=== PATIENT | male | born 1955 | race Caucasian/White ===

== ENCOUNTER 2024-03-05 18:20 | Inpatient (IN) | payer OTHER, SELFPAY ==
[2024-03-05] VITALS (8 sets, daily range): BP systolic 97–169; BP diastolic 55–94; BMI 28.8; BMI 28.7
--- NOTE | 2024-03-05 11:51 | ED.GENMED ---
History of Present Illness
General
Chief Complaint: Male Genito-Urinary Symptoms
Time Seen by Provider: 03/05/24 11:09
Travel History
Have you had any contact with someone who has COVID-19?: No
Do you have any symptoms of coronavirus? Fever > 100 degrees, chills, cough, shortness of breath, sore throat, loss of taste or smell, muscle aches, or headache?: No
History of Present Illness
History of Present Illness:
68-year-old male presents to the emergency department for evaluation of intermittent hematuria coupled with generalized weakness and nausea. Patient notes that he is paralyzed from the waist down due to a prior spinal cord injury approximately 40
years ago, typically was using condom catheters however recently has developed edema of the penis and scrotum and the condom catheters are no longer adhering well. Over the past month he has had an indwelling Li catheter, this was most recently
changed 2 to 3 days ago. He states due to cloudy urine 1 week ago he was seen in urgent care and started on a antibiotic for presumed UTI, took nearly the full course of cefuroxime over the course of 5 days. He was also treated with doxycycline 1
month prior but he is uncertain why. He was following with wound care at [facility] this morning for a chronic wound to the left inguinal region and was advised to seek emergency medicine evaluation although the wound appears clean on my
evaluation. Denies any objective fevers but does have frequent shaking chills
Past History
Past History
ED Past Medical History: None
ED Past Surgical History: Orthopedic
Social History
Tobacco: Non-smoker
Alcohol: None
Drug: None
Review of Systems
Review of Systems
Allergies reviewed?: Yes
All Other Systems: ROS reviewed and negative except as documented in HPI and ROS
Phy Exam
Physical Exam
Physical Exam:
GEN: Well appearing, NAD, WDWN
HEENT: Oral mucosa moist, no scleral icterus
Cardiac: Regular rate
Lung: No respiratory distress, no tachypnea
MSK: No gross deformity or injuries
Skin: Good color, no pallor or jaundice, no rashes. 4 cm x 3 cm full-thickness wound to the left inguinal region, no associated erythema or purulent discharge. There is mild edema of the scrotum bilaterally with no induration, no perineal
induration
Neuro: AO x3
Psych: Calm, cooperative
Course
Orders/Labs/Results
Orders:
Orders
03/05/24 13:22
C-Reactive Protein Urgent
Comment: ADD ON
Complete Blood Count/With Diff Urgent
Comprehensive Metabolic Panel Urgent
Erythrocyte Sed Rate Urgent
Comment: ADD ON
Lactic Acid Q4H
Comment: CANCEL 2nd LACTIC ACID IF 1st LACTIC ACID IS LESS THAN 2
Blood Culture Q30M
AKILA Source: Blood/Venous
Specimen Description:
03/05/24 13:52
Urinalysis Reflex To Culture Urgent
Date Specimen was Collected: 03/05/24
Time Specimen was Collected: 11:58
Urine Microscopic Reflex Cult Urgent
Urine Culture Urgent
AKILA Source: U
Specimen Description:
Date Specimen was Collected: 03/05/24
Time Specimen was Collected: 11:58
03/05/24 14:36
0.9% Sodium Chloride 1000 ml [Nss] 1,000 ml IV BOLUS
Ondansetron Injectable [Zofran] 4 mg IV NOW STA
03/05/24 Dinner
Regular
At Your Request: Full Participation
03/05/24 15:13
CT Pelvis With Iv Contrast Urgent
Comment:
Reason For Exam: chronic pelvic wound, recurrent UTI, poss abscess
CefTRIAXone [Rocephin] 1,000 mg IV NOW STA
03/05/24 15:28
Add On- LAB Urgent
Tests Added?: CRP, ESR
03/05/24 17:51
Admit/Transfer Patient As Directed
Co-Sign Provider:
Level of Care: Inpatient admission
Assign to:: Medical/Surgical
Physician / Group: gelacio
Diagnosis: catheter associated uti
Reason for Hospitalization: catheter associated uti
Expected length of stay greater than two midnights?: Yes
ELOS- Estimated Length of Stay in days: 2
I certify the patient meets the requirements for IP care: Yes
Code Status As Directed
Resuscitation Status: Full Code
03/05/24 17:56
Li Catheter [Catheter- Indwelling] As Directed
Reason for insertion: Chronic Li on Admit
03/05/24 19:37
Acetaminophen [Tylenol] 1,000 mg PO DAILYPRN PRN
03/05/24 19:37
UROLOGY CONSULT Routine
Consulting Provider: Ricki Beard
Was physician already notified: Yes
WOUND/OSTOMY CONSULT Routine
Reason for Consult: sacral, inguinal wounds
VTE Contraindication Routine
VTE Mechanical Device Contraindication: Medical Contraindication
Pharmocologic Contraindication: Medical Contraindication
Activity As Directed
Activity Level: As Tolerated
Vital Signs As Directed
Frequency: Per unit guidelines
DX Deep Vein Thrombosis Video Routine
03/05/24 20:00
Heparin 5,000 units SC Q12
Multivitamin [Theragran] 1 tablet PO BID
03/05/24 20:35
Blood Culture Q30M
AKILA Source: Blood/Venous
Specimen Description:
03/05/24 22:00
Ascorbic Acid [Vitamin C] 500 mg PO HS
Atorvastatin [Lipitor] 40 mg PO HS
03/06/24 05:00
Complete Blood Count/With Diff IN AM
Comprehensive Metabolic Panel IN AM
03/06/24 16:00
CefTRIAXone [Rocephin] 1,000 mg IV Q24H
Abnormal Lab Results
03/05/24 03/05/24
13:22 13:52
RBC 4.59 L 10^6/uL
(4.70-6.10)
Hgb 12.5 L g/dL
(13.0-18.0)
Hct 36.5 L %
(39.0-52.0)
MCV 79.5 L fL
(80.0-94.0)
Absolute Neuts (auto) 8.8 H 10^3/uL
(1.4-6.5)
Absolute Lymphs (auto) 0.4 L 10^3/uL
(1.2-3.4)
Neutrophils % 92.3 H %
(42.2-75.2)
Lymphocytes % 4.6 L %
(20.5-51.1)
ESR 56 H mm/hour
(0-20)
Creatinine 0.4 L mg/dL
(0.7-1.3)
C-Reactive Protein 134.30 H mg/L
(0.0-10.00)
Albumin 3.0 L g/dl
(3.5-5.0)
Ur Occult Blood Reflex 4+ A
(Negative)
Leukocyte Esterase Rfl 2+ A
(Negative)
Urine RBC 3-6 A /HPF
(0-2)
Urine WBC (Reflex) >100 A /HPF
(0-5)
Urine Bacteria (Reflex) Many A
(Negative)
03/05/24 13:22
03/05/24 13:22
Vital Signs
Initial and Last Documented VS:
Initial Vital Signs
Temp Pulse Resp BP Pulse Ox
98.7 F 85 18 169/81 99
03/05/24 10:37 03/05/24 10:37 03/05/24 10:37 03/05/24 10:37 03/05/24 10:37
Last Documented Vital Signs
Temp Pulse Resp BP Pulse Ox
98.3 F 76 16 102/48 96
03/07/24 07:00 03/07/24 07:00 03/07/24 07:00 03/07/24 07:00 03/07/24 07:00
MDM/Problems Addressed
MDM/Problems Addressed:
Patient has evidence for persistent catheter associated UTI despite use of appropriate antibiotics. Given his shaking chills and large leukocytes on urinalysis would consider this a true UTI as opposed to colonization and thus we will treat with
broad-spectrum IV antibiotics. Patient will have imaging of the pelvis to evaluate for a pelvic abscess or potentially pelvic bone osteomyelitis in the setting of this chronic wound, this could certainly seeded recurrent UTIs. care signed out to
Raul Sylvester PA-c Pending imaging, will be admitted thereafter
*Critical Care Note
Total Time (30-74mins, 75-104mins- exclusive of procedures): Not Applicable
ED Attending Note
-
Portions of this chart may have been created with voice recognition software.� Occasional wrong word or��sound alike� substitutions may have occurred due to the inherent limitations of voice recognition software.
Discharge Plan
Departure
Patient Disposition: Admit
Date of Disposition: 03/05/24
Time of Disposition: 15:28
Admit to: Med/Surg
Presentation/result/management discussed w/ accepting MD/DO: Hospitalist
Discharge Problem:
Catheter-associated urinary tract infection, Open wound of groin
Interventions
Interventions:
*Risk Screen - Suicide Last Done: 03/05/24 21:25
*General Assessment Last Done: 03/05/24 10:37
*Neglect/Abuse Screening Last Done: 03/05/24 10:37
ED- Fall Risk Assessment Last Done: 03/05/24 18:30
*ED COVID-19 Vaccine History Last Done: 03/05/24 21:25
*Nursing Disposition Last Done: 03/05/24 18:30
ED-Male Genitourinary Assessment Last Done: 03/05/24 11:59
ED-Skin Assessment Last Done: 03/05/24 20:41
Discharge Date and Time
Discharge Date/Time: 03/05/24 18:30
[2024-03-05 13:32] LABS: % Basophils 0.3 % (0-2); % Eosinophils 0.1 % (0-6); % Immature Granulocytes 0.4 % (0-0.5); % Lymphocytes 4.6 % (20.5-51.1); % Monocytes 2.3 % (1.7-9.3); % Neutrophils 92.3 % (42.2-75.2); Absolute Lymphocytes 0.4 10^3/uL (1.2-3.4); Absolute Monocytes 0.2 10^3/uL (0.1-0.6); Absolute Neutrophils 8.8 10^3/uL (1.4-6.5); Hematocrit 36.5 % (39.0-52.0); Hemoglobin 12.5 g/dL (13.0-18.0); Mean Corp Hgb Conc. 34.2 g/dL (33.0-37.0); Mean Corpuscular Hgb 27.2 pg (27.0-31.0); Mean Corpuscular Volume 79.5 fL (80.0-94.0); Mean Platelet Volume 8.3 fL (7.4-10.4); Nucleated Red Blood Cells % 0 % (-); Platelet Count 312 10^3/uL (130-400); Red Blood Cell Count 4.59 10^6/uL (4.70-6.10); Red Cell Dist. Width 14.5 % (11.5-14.5); White Blood Cell Count 9.6 10^3/uL (4.8-10.8)
[2024-03-05 13:45] LABS: Lactic Acid 1.5 mmol/L (0.7-2.0)
[2024-03-05 13:46] LABS: ALT (SGPT) 49 U/L (0-50); AST (SGOT) 35 U/L (17-59); Alkaline Phosphatase 71 U/L (38-126); Blood Urea Nitrogen 15 mg/dl (9-20); Calcium 8.9 mg/dl (8.4-10.2); Carbon Dioxide 25 mmol/L (22-30); Chloride 102 mmol/L (98-107); Estimated Creatinine Clearance > 125 ml/min; Glucose 94 mg/dl (70-99); Sodium 135 mmol/L (135-145); Total Bilirubin 0.8 mg/dl (0.2-1.3); Total Protein 6.8 g/dl (6.3-8.2); eGFR > 60.00
[2024-03-05 14:11] LABS: Urine Albumin Trace (Neg - Trace); Urine Bilirubin Negative (Negative); Urine Character Very Cloudy (Clear); Urine Color Yellow; Urine Glucose Negative (Negative); Urine Ketone Negative (Negative); Urine Leukocyte 2+ (Negative); Urine Nitrite Negative (Negative); Urine Occult Blood 4+ (Negative); Urine Urobilinogen Negative (Neg - 1+)
[2024-03-05] MEDS: NSS 1000 IV (14:50)
[2024-03-05] MEDS: ZOFRAN 4 MG IV (14:51)
[2024-03-05 15:01] LABS: Urine Bacteria Many (Negative); Urine White Cell >100 /HPF (0-5)
[2024-03-05] MEDS: ROCEPHIN 1000 MG IV (15:56)
[2024-03-05 16:55] LABS: Erythrocyte Sed Rate 56 mm/hour (0-20)
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
--- NOTE | 2024-03-05 21:00 | PTCARENOTE ---
Patient admitted from ED. Patient AAO x3, on RA, in no acute distress. Chronic thompson catheter in place - will exchange. Patient has pressure injuries noted to sacrum and left groin present on admission. Foam dressings and ABD dressing applied. Wound
care is consulted. Patient is oriented to room and call mendoza is within reach.
[2024-03-05] MEDS: VITAMIN C 500 MG PO (21:39)
[2024-03-05] MEDS: HEPARIN 5000 UNITS SC (21:39)
[2024-03-05] MEDS: LIPITOR 40 MG PO (21:39)
[2024-03-05] MEDS: THERAGRAN 1 TABLET PO (21:39)
[2024-03-05] MEDS: TYLENOL 1000 MG PO (22:39)
[2024-03-06 05:36] LABS: % Basophils 0.5 % (0-2); % Eosinophils 0.9 % (0-6); % Immature Granulocytes 0.5 % (0-0.5); % Lymphocytes 18.8 % (20.5-51.1); % Monocytes 8.9 % (1.7-9.3); % Neutrophils 70.4 % (42.2-75.2); Absolute Eosinophils 0.1 10^3/uL (0-0.7); Absolute Lymphocytes 1.3 10^3/uL (1.2-3.4); Absolute Monocytes 0.6 10^3/uL (0.1-0.6); Absolute Neutrophils 4.7 10^3/uL (1.4-6.5); Hematocrit 35.6 % (39.0-52.0); Hemoglobin 11.8 g/dL (13.0-18.0); Mean Corp Hgb Conc. 33.1 g/dL (33.0-37.0); Mean Corpuscular Hgb 26.9 pg (27.0-31.0); Mean Corpuscular Volume 81.3 fL (80.0-94.0); Mean Platelet Volume 8.7 fL (7.4-10.4); Nucleated Red Blood Cells % 0 % (-); Platelet Count 331 10^3/uL (130-400); Red Blood Cell Count 4.38 10^6/uL (4.70-6.10); Red Cell Dist. Width 14.6 % (11.5-14.5); White Blood Cell Count 6.6 10^3/uL (4.8-10.8)
[2024-03-06 06:03] LABS: ALT (SGPT) 48 U/L (0-50); AST (SGOT) 37 U/L (17-59); Albumin 2.6 g/dl (3.5-5.0); Alkaline Phosphatase 64 U/L (38-126); Blood Urea Nitrogen 14 mg/dl (9-20); Calcium 8.6 mg/dl (8.4-10.2); Carbon Dioxide 28 mmol/L (22-30); Chloride 105 mmol/L (98-107); Estimated Creatinine Clearance > 125 ml/min; Glucose 94 mg/dl (70-99); Potassium 3.7 mmol/L (3.5-5.1); Sodium 137 mmol/L (135-145); Total Bilirubin 0.6 mg/dl (0.2-1.3); eGFR > 60.00
[2024-03-06 07:40] VITALS: BP 100/54
[2024-03-06] MEDS: THERAGRAN 1 TABLET PO ×2 (08:07→21:59)
[2024-03-06] MEDS: HEPARIN 5000 UNITS SC ×2 (08:07→21:59)
--- NOTE | 2024-03-06 09:43 | WOUNDNOTE ---
SACRUM AND L UPPER BUTTOCKS
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
--- NOTE | 2024-03-06 13:58 | W.PN.UPDATE ---
Update Note
Progress Note Update
Given catheter exchange (previous malpositioned catheter placed by pt) <24 hrs, advise restarting Eliquis tomorrow (03/07/24).
D/w Dr. Jarquin.
[2024-03-06] MEDS: STERILE WATER FOR INJECTION 10 ML IV (15:25)
[2024-03-06] MEDS: ROCEPHIN 1000 MG IV (15:25)
[2024-03-06 15:36] VITALS: BP 111/56
--- NOTE | 2024-03-06 15:51 | CM ---
Met with patient at bedside; initial assessment and case management consult completed
Family Physician verified: Yanick Monotya D.O., [address], [facility] [address]; phone: [phone]
Pharmacy verified: [facility]
Lives alone in a [place] w/basement; no steps to enter; no ramp; chair glide on basement stairs; bath has tub w/shower; uses a bath bench to get in/out of tub
Ex- and son available to assist when needed; ex- assists with wound care. Both are moving and he will will need assistance with wound care when they move. [facility] [place]
Rehab utilization: Acute inpatient rehab in the past; last one was in 2021
No SNF or Home Health services utilized
PLOF: Spinal cord injury T12 1979. Reports he is independent with ADLs; for mobility; retired
Chronic Urinary catheter in place; at home he uses a condom urinary catheter; reports he has inguinal wounds
Transportation: family will provide transport home
Plan: discharge to home with home health services from [facility]; referral submitted to liaison via tiger text
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
--- NOTE | 2024-03-06 16:32 | VNURNOTE ---
[facility] referral completed in [facility] after review of chart, unable to reach patient by cell phone or room phone.
[2024-03-06] MEDS: LIPITOR 40 MG PO (21:59)
[2024-03-06] MEDS: VITAMIN C 500 MG PO (21:59)
[2024-03-06 23:00] VITALS: BP 155/95
[2024-03-07 07:00] VITALS: BP 102/48
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
[2024-03-07] MEDS: HEPARIN 5000 UNITS SC (08:14)
[2024-03-07] MEDS: THERAGRAN 1 TABLET PO ×2 (08:14→20:22)
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
--- NOTE | 2024-03-07 11:41 | W.PN.ID1 ---
Date of Service
Date of Service: March 07, 2024
Today's Communication
- continue ceftriaxone pending ID/sensi
Assessment / Plan
Complicated UTI
Malpositioned thompson catheter - replaced this admission
Paraplegia
Wounds without evidence of infection
- urine culture 100 K GNR
- blood cultures 1 of 2 with GNR
- no need to repeat blood cultures for GNR bacteremia
- continue ceftriaxone pending ID/sensi
- follow for ID/sensi of the isolate
Chief Complaint
-: UTI
Subjective / Review of Systems
no further fevers
bp stable
no labs today
1 of 2 blood cultures GNR
no cva tenderness
clear urine
Vital Signs / Physical Exam
Vital Signs
Vital Signs
Temp Pulse Resp BP Pulse Ox
98.3 F 76 16 102/48 96
03/07/24 07:00 03/07/24 07:00 03/07/24 07:00 03/07/24 07:00 03/07/24 07:00
Physical Exam
Constitutional: No Acute Distress
Cardiovascular: Regular Rate and S1/S2; Negative Murmur or Rub
Pulmonary: Clear and Symmetric; Negative Wheezes or Rales
Gastrointestinal: Soft, Non Tender, Non Distended and Normal Bowel Sounds
Genito-Urinary: Clear Urine; Negative Suprapubic Tenderness or CVA Tenderness
Skin: Warm and Dry; Negative Rash or Jaundice
Objective Data
Lab Data
Lab Results
03/06/24 05:00
03/06/24 05:00
ESR 56 mm/hour (0-20) H 03/05/24 13:22
Estimated Creat Clear > 125 ml/min 03/06/24 05:00
Lactic Acid 1.5 mmol/L (0.7-2.0) 03/05/24 13:22
Total Bilirubin 0.6 mg/dl (0.2-1.3) 03/06/24 05:00
AST 37 U/L (17-59) 03/06/24 05:00
ALT 48 U/L (0-50) 03/06/24 05:00
Alkaline Phosphatase 64 U/L (38-126) 03/06/24 05:00
C-Reactive Protein 134.30 mg/L (0.0-10.00) H 03/05/24 13:22
Most recent labs reviewed.
Micro Results:
03/05/24 13:52 Urine Culture - Preliminary
Urine Gram negative bacilli
03/05/24 22:05 MRSA Screen - Final
Nose No Methicillin Resistant Staphylococcus aureus isolated.
03/05/24 20:35 Blood Culture - Preliminary
Blood/Venous No Growth in 24 hours- Final report to follow
03/05/24 13:22 Blood Culture - Preliminary
Blood/Venous Positive culture in progress
Gram Stain - Preliminary
[2024-03-07] MEDS: ELIQUIS 5 MG PO ×2 (12:11→20:22)
[2024-03-07 15:00] VITALS: BP 105/59
[2024-03-07] MEDS: STERILE WATER FOR INJECTION 10 ML IV (17:16)
[2024-03-07] MEDS: ROCEPHIN 1000 MG IV (17:16)
[2024-03-07] MEDS: VITAMIN C 500 MG PO (20:22)
[2024-03-07] MEDS: LIPITOR 40 MG PO (20:22)
[2024-03-07 23:00] VITALS: BP 108/59
[2024-03-08 07:14] VITALS: BP 92/40
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
--- NOTE | 2024-03-08 08:33 | W.PN.UPDATE ---
Update Note
Progress Note Update
Called by microl[facility] for resistant morganella
patient with bactrim allergy limited antibiotic choices
start ertapenem 1 gm IV q24 hr, to complete 2 weeks of rx with concern for prostatitis - through 03/21
midline
stable for dc from ID perspective when antibiotic arranged
follow up with Dr Beard - urology
[2024-03-08] MEDS: THERAGRAN 1 TABLET PO ×2 (08:58→19:56)
[2024-03-08] MEDS: ELIQUIS 5 MG PO ×2 (08:58→19:56)
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
[2024-03-08] MEDS: INVANZ 60 MG IV (09:47)
[2024-03-08 10:08] LABS: Hematocrit 38.5 % (39.0-52.0); Hemoglobin 13.2 g/dL (13.0-18.0); Mean Corp Hgb Conc. 34.3 g/dL (33.0-37.0); Mean Corpuscular Hgb 26.7 pg (27.0-31.0); Mean Corpuscular Volume 77.9 fL (80.0-94.0); Mean Platelet Volume 8.3 fL (7.4-10.4); Platelet Count 366 10^3/uL (130-400); Red Blood Cell Count 4.94 10^6/uL (4.70-6.10); Red Cell Dist. Width 14.4 % (11.5-14.5); White Blood Cell Count 6.2 10^3/uL (4.8-10.8)
--- NOTE | 2024-03-08 14:28 | W.PN.ID1 ---
Date of Service
Date of Service: March 08, 2024
Today's Communication
- ertapenem
- midline
- at patient request may consider bactrim challenge tomorrow, will re-review with him in the AM
Assessment / Plan
Complicated UTI
Malpositioned thompson catheter - replaced this admission
Paraplegia
Wounds without evidence of infection
- urine culture 100 K Morganella, blood cultures Morganella
- without leukocytosis, cr stable
- ertapenem
- midline
- at patient request may consider bactrim challenge tomorrow, will re-review with him in the AM
Chief Complaint
-: UTI
Subjective / Review of Systems
afebrile
bp stable
reports bactrim issue was minimal scratchy throat- he questions if allergy is real without my prompting
without leukocyotsis
cr stable
midline in place
Vital Signs / Physical Exam
Vital Signs
Vital Signs
Temp Pulse Resp BP Pulse Ox
98.8 F 67 16 92/40 98
03/08/24 07:14 03/08/24 07:14 03/08/24 07:14 03/08/24 07:14 03/08/24 07:14
Physical Exam
Constitutional: No Acute Distress
Cardiovascular: Regular Rate and S1/S2; Negative Murmur or Rub
Pulmonary: Clear and Symmetric; Negative Wheezes or Rales
Gastrointestinal: Soft, Non Tender, Non Distended and Normal Bowel Sounds
Skin: Warm and Dry; Negative Rash or Jaundice
Lines: Other (midline)
Objective Data
Lab Data
Lab Results
03/08/24 09:55
03/06/24 05:00
ESR 56 mm/hour (0-20) H 03/05/24 13:22
Estimated Creat Clear > 125 ml/min 03/06/24 05:00
Lactic Acid 1.5 mmol/L (0.7-2.0) 03/05/24 13:22
Total Bilirubin 0.6 mg/dl (0.2-1.3) 03/06/24 05:00
AST 37 U/L (17-59) 03/06/24 05:00
ALT 48 U/L (0-50) 03/06/24 05:00
Alkaline Phosphatase 64 U/L (38-126) 03/06/24 05:00
C-Reactive Protein 134.30 mg/L (0.0-10.00) H 03/05/24 13:22
Most recent labs reviewed.
Micro Results:
03/07/24 13:08 Blood Culture - Preliminary
Blood/Venous No Growth in 24 hours- Final report to follow
03/07/24 11:52 Blood Culture - Preliminary
Blood/Venous No Growth in 24 hours- Final report to follow
03/05/24 13:22 Blood Culture - Preliminary
Blood/Venous Morganella morganii
Gram Stain - Preliminary
03/05/24 13:52 Urine Culture - Final
Urine Morganella morganii
03/05/24 20:35 Blood Culture - Preliminary
Blood/Venous No Growth in 48 hours- Final report to follow
03/05/24 22:05 MRSA Screen - Final
Nose No Methicillin Resistant Staphylococcus aureus isolated.
[2024-03-08 14:53] VITALS: BMI 28.7
[2024-03-08 15:00] VITALS: BP 93/46
[2024-03-08] MEDS: LIPITOR 40 MG PO (21:52)
[2024-03-08] MEDS: VITAMIN C 500 MG PO (21:52)
[2024-03-08 23:00] VITALS: BP 118/58
[2024-03-09 05:52] LABS: Hematocrit 39.6 % (39.0-52.0); Hemoglobin 12.8 g/dL (13.0-18.0); Mean Corp Hgb Conc. 32.3 g/dL (33.0-37.0); Mean Corpuscular Hgb 26.3 pg (27.0-31.0); Mean Corpuscular Volume 81.5 fL (80.0-94.0); Mean Platelet Volume 8.7 fL (7.4-10.4); Platelet Count 439 10^3/uL (130-400); Red Blood Cell Count 4.86 10^6/uL (4.70-6.10); Red Cell Dist. Width 14.4 % (11.5-14.5); White Blood Cell Count 8.8 10^3/uL (4.8-10.8)
[2024-03-09 06:17] LABS: Blood Urea Nitrogen 16 mg/dl (9-20); Calcium 9.3 mg/dl (8.4-10.2); Carbon Dioxide 27 mmol/L (22-30); Chloride 104 mmol/L (98-107); Estimated Creatinine Clearance > 125 ml/min; Glucose 96 mg/dl (70-99); Potassium 4.5 mmol/L (3.5-5.1); Sodium 138 mmol/L (135-145); eGFR > 60.00
[2024-03-09 07:00] VITALS: BP 131/70
[2024-03-09] MEDS: ELIQUIS 5 MG PO ×2 (09:28→22:01)
[2024-03-09] MEDS: THERAGRAN 1 TABLET PO ×2 (09:28→22:01)
[2024-03-09] MEDS: INVANZ 60 MG IV (09:30)
--- NOTE | 2024-03-09 11:14 | WOUNDNOTE ---
SACRUM AND L HIP/ UPPER BUTTOCKS
--- NOTE | 2024-03-09 11:16 | WOUNDNOTE ---
R HIP HEALED PI
--- NOTE | 2024-03-09 11:18 | WOUNDNOTE ---
WON RN NOTE: Followed up today regarding wounds, patient able to turn self with minimal assist. On [facility] Air bed, patient confirms he turns self to sides and is conscious of not putting HOB too high to prevent pressure on Sacrum. Wounds look
lamp cleaner compared to last seen, dressings changed using silver alginate and silicone foam. Applied skin prep then Calazime to L scrotal partial thickness ulcer, no change since last seen. Heels remain with protective foams to protect. Teaching done
with patient regarding wound care, states he can do L groin himself but has someone that can help him change sacral and buttock wounds daily. Asking information regarding the wound center at our hospital, patient wishes to change wound centers. Will
update discharge instructions with information for wound center and patient will make an apt. upon discharge. Nurse Will aware of above.
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
--- NOTE | 2024-03-09 12:46 | W.PN.UPDATE ---
Update Note
Progress Note Update
Li catheter draining well - no hematuria.
As d/w patient, will change catheter in office in 3 weeks in lieu of CIC/condom catheter regimen.
--- NOTE | 2024-03-09 12:55 | VNURNOTE ---
Home Health Liaison met with patient at 1130 to discuss [facility] nurse/therapy, visits, schedule and homebound status. Patient is agreeable and understands that visits at home will be 2-3 x per week to assess and teach medical management and wound care.
Liaison discussed need for hospital bed if patient required air mattress and patient is reluctant.
[facility] contact information provided. Patient is aware that [facility] will contact him for start of care in 1-2 days after discharge from .
[facility] referral completed and accepted previously in [facility].
--- NOTE | 2024-03-09 13:41 | W.PN.ID1 ---
Date of Service
Date of Service: March 09, 2024
Today's Communication
- at patient request proceeding with bactrim challenge, may not need home IV antibiotics
Assessment / Plan
Complicated UTI
Malpositioned thompson catheter - replaced this admission
Paraplegia
Wounds without evidence of infection
- urine culture 100 K Morganella, blood cultures Morganella
- without leukocytosis, cr stable
- at patient request proceeding with bactrim challenge, may not need home IV antibiotics
Chief Complaint
-: UTI
Subjective / Review of Systems
afebrile
bp stable
no leukocytosis
cr stable
wants to proceed with bactrim challenge
Vital Signs / Physical Exam
Vital Signs
Vital Signs
Temp Pulse Resp BP Pulse Ox
98.6 F 80 16 131/70 98
03/09/24 07:00 03/09/24 07:00 03/09/24 07:00 03/09/24 07:00 03/09/24 08:38
Physical Exam
Constitutional: No Acute Distress
Cardiovascular: Regular Rate
Pulmonary: Symmetric and Non Labored
Gastrointestinal: Non Distended
Neurological: Awake and Alert
Objective Data
Lab Data
Lab Results
03/09/24 04:54
03/09/24 04:54
ESR 56 mm/hour (0-20) H 03/05/24 13:22
Estimated Creat Clear > 125 ml/min 03/09/24 04:54
Lactic Acid 1.5 mmol/L (0.7-2.0) 03/05/24 13:22
Total Bilirubin 0.6 mg/dl (0.2-1.3) 03/06/24 05:00
AST 37 U/L (17-59) 03/06/24 05:00
ALT 48 U/L (0-50) 03/06/24 05:00
Alkaline Phosphatase 64 U/L (38-126) 03/06/24 05:00
C-Reactive Protein 134.30 mg/L (0.0-10.00) H 03/05/24 13:22
Most recent labs reviewed.
Micro Results:
03/07/24 13:08 Blood Culture - Preliminary
Blood/Venous No Growth in 48 hours- Final report to follow
03/07/24 11:52 Blood Culture - Preliminary
Blood/Venous No Growth in 48 hours- Final report to follow
03/05/24 20:35 Blood Culture - Preliminary
Blood/Venous No Growth in 72 hours- Final report to follow
03/05/24 13:22 Blood Culture - Preliminary
Blood/Venous Morganella morganii
Gram Stain - Preliminary
03/05/24 13:52 Urine Culture - Final
Urine Morganella morganii
03/05/24 22:05 MRSA Screen - Final
Nose No Methicillin Resistant Staphylococcus aureus isolated.
Care Review
Plan reviewed with: Other Provider (Clinical pharmacy - [facility] pharmD - bactrim challenge protocal )
--- NOTE | 2024-03-09 14:44 | CM ---
Spoke with patient bedside.
Plan is home with [facility].
Ex- will be able to assist for a little while, but she is moving.
Patient may need hospital bed, VN aware.
Possible home IV anbx, patient chose [facility].
Per [facility], cost would be $60 per week until OOP deductible of $1000 met then covered at 100%. Patient updated.
Spoke with ID, starting Bactrim challenge today.
Plan: home with [facility], possible IV anbx vs oral.
[2024-03-09 15:00] VITALS: BP 105/56
[2024-03-09] MEDS: BACTRIM 16 MG PO (15:57)
[2024-03-09] MEDS: BACTRIM 400 MG/80 MG 1 TABLET PO (17:28)
[2024-03-09] MEDS: LIPITOR 40 MG PO (22:02)
[2024-03-09] MEDS: VITAMIN C 500 MG PO (22:02)
[2024-03-09 22:50] VITALS: BP 106/59
[2024-03-09] MEDS: TYLENOL 650 MG PO (22:50)
[2024-03-10 07:35] VITALS: BP 112/59
[2024-03-10] MEDS: THERAGRAN 1 TABLET PO (09:00)
[2024-03-10] MEDS: ELIQUIS 5 MG PO (09:00)
[2024-03-10] MEDS: BACTRIM 400 MG/80 MG 1 TABLET PO (09:00)
[2024-03-10] MEDS: INVANZ 60 MG IV (09:08)
--- NOTE | 2024-03-10 10:20 | PN.CDI ---
CDI
- -
CDI:
Physician Documentation Request
Admit Date: 03/05/24 18:20
Dear Doctor,
Please review the following and provide your response in the progress notes.
Clinical Indicators:
Pt admitted with CAUTI
ID progress notes 03/08 &03/09 ,' urine culture 100 K Morganella, blood cultures Morganella..'
Progress note 03/09, ' was on Rocephin, now on Invanz 1g IV daily through 03/21/24 as per ID (resistant morganella in BCx)...-DC to home on IV abx (already has midline) vs. po bactrim ?...'
Please clarify which of the following most accurately describes the status of the patient's infection:
Morganella Bacteremia
CAUTI with Morganella only , Without Systemic Illness
Other
Use of terms such as suspected, likely, concern for, or probable (associated with a specific diagnosis that is being evaluated, monitored, or treated as if it exists) are acceptable and can be coded in the inpatient setting, when documented at the
time of discharge.
Thank you,
Vane Canales RN
CDI Specialist
[place] [facility]
Please use your independent medical judgment in providing your response.
[2024-03-10 10:37] VITALS: BMI 26.5
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
--- NOTE | 2024-03-10 12:34 | W.PN.ID1 ---
Addendum entered and electronically signed by Amie Crawford MD 03/10/24 15:18:
Additionally patient had Morganella Bacteremia
Original Note:
Date of Service
Date of Service: March 10, 2024
Today's Communication
- continue bactrim for 2 week total course through 03/21
- remove midline
- allergy removed from chart
- follow up with PCP
Assessment / Plan
Complicated UTI
Malpositioned thompson catheter - replaced this admission
Paraplegia
Wounds without evidence of infection
- continue bactrim for 2 week total course through 03/21
- remove midline
- allergy removed from chart
- follow up with PCP
Chief Complaint
-: UTI
Subjective / Review of Systems
afebrile
bp stable
tolerated bactrim - allergy removed
no complaints
Vital Signs / Physical Exam
Vital Signs
Vital Signs
Temp Pulse Resp BP Pulse Ox
97.9 F 77 12 112/59 98
03/10/24 07:35 03/10/24 07:35 03/10/24 07:35 03/10/24 07:35 03/10/24 09:00
Physical Exam
Constitutional: No Acute Distress
Cardiovascular: Regular Rate
Pulmonary: Symmetric and Non Labored
Gastrointestinal: Non Distended
Skin: Warm and Dry; Negative Rash or Jaundice
Objective Data
Lab Data
Lab Results
03/09/24 04:54
03/09/24 04:54
ESR 56 mm/hour (0-20) H 03/05/24 13:22
Estimated Creat Clear > 125 ml/min 03/09/24 04:54
Lactic Acid 1.5 mmol/L (0.7-2.0) 03/05/24 13:22
Total Bilirubin 0.6 mg/dl (0.2-1.3) 03/06/24 05:00
AST 37 U/L (17-59) 03/06/24 05:00
ALT 48 U/L (0-50) 03/06/24 05:00
Alkaline Phosphatase 64 U/L (38-126) 03/06/24 05:00
C-Reactive Protein 134.30 mg/L (0.0-10.00) H 03/05/24 13:22
Most recent labs reviewed.
Micro Results:
03/07/24 11:52 Blood Culture - Preliminary
Blood/Venous No Growth in 72 hours- Final report to follow
03/05/24 20:35 Blood Culture - Preliminary
Blood/Venous No Growth in 4 days- Final report to follow
03/07/24 13:08 Blood Culture - Preliminary
Blood/Venous No Growth in 48 hours- Final report to follow
03/05/24 13:22 Blood Culture - Preliminary
Blood/Venous Morganella morganii
Gram Stain - Preliminary
03/05/24 13:52 Urine Culture - Final
Urine Morganella morganii
03/05/24 22:05 MRSA Screen - Final
Nose No Methicillin Resistant Staphylococcus aureus isolated.
Care Review
Plan reviewed with: Physician (Dr Logan song)
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
--- NOTE | 2024-03-10 13:15 | VNURNOTE ---
Home Health Liaison met with patient to again discuss and encourage air mattress and hospital bed for home.
Patient is declining at this time.
Patient stated ' I would have to reconfigure my house' and ' I want to talk to [facility] to find out what I could use'.
Liaison discussed that patient should strongly consider getting alternating pressure relief mattress or air mattress to assist in healing current wounds and for prevention of future wounds.
Patient verbalized understanding but wants to wait and does not want to place order at this time.
--- NOTE | 2024-03-10 14:20 | CM ---
Patient seen bedside.
Patient for d/c home today, friend will transport.
[facility] to follow.
Patient does not want at hospital bed at this time.
Patient does not require IV anbx.
IMM completed.
Plan: home with [facility]
[2024-03-10 14:29] VITALS: BP 121/70
== END 2024-03-10 17:21 | disposition home health service (06) | DRG 698 ==
LOC: 4 WEST ACU 18:20
PROVIDERS: Internal Medicine; Physician Assistant; ADMITTING PHYSICIAN Hospitalist; ATTENDING PHYSICIAN Hospitalist; CONSULT PHYSICIAN Student in an Organized Health Care Education/Training Program; EMERGENCY PHYSICIAN Emergency Medicine; FAMILY PHYSICIAN Student in an Organized Health Care Education/Training Program
DX: T83.518A Infection and inflammatory reaction due to other urinary catheter, initial encounter (principal); L89.153 Pressure ulcer of sacral region, stage 3; L89.323 Pressure ulcer of left buttock, stage 3; G82.20 Paraplegia, unspecified; N13.6 Pyonephrosis; I50.22 Chronic systolic (congestive) heart failure; N39.0 Urinary tract infection, site not specified; R78.81 Bacteremia; Y84.6 Urinary catheterization as the cause of abnormal reaction of the patient, or of later complication, without mention of misadventure at the time of the procedure; I25.5 Ischemic cardiomyopathy; N31.9 Neuromuscular dysfunction of bladder, unspecified; T83.021A Displacement of indwelling urethral catheter, initial encounter
CPT/HCPCS: 72193; 80048; 80053; 81003; 81015; 83605; 85025; 85027; 85652; 86140; 87040; 87070; 87077; 87086; 87186; 87205; 93005; 96361; 96374; 96375; 99285; J1335; Q9967

== ENCOUNTER 2024-05-01 03:08 | Inpatient (IN) | payer OTHER, SELFPAY ==
[2024-04-30 20:33] VITALS: BP 146/78
--- NOTE | 2024-04-30 22:40 | ED.GENMED ---
History of Present Illness
General
Chief Complaint: Male Genito-Urinary Symptoms
Source: patient
Exam Limitations: none
Time Seen by Provider: 04/30/24 21:57
History of Present Illness
History of Present Illness:
This is a 68 year old male that comes in with c/o UTI. State that he started 3-4 days ago with brown thick urine. States that tonight his catheter was blocked so he changed his catheter before coming. States that he has had a low grade fever of 99.5
with some back pain. States that he is nauseated and had loose stool. Denies any chills, chest pain, SOB, vomiting, headache, dizziness.
Past History
Past History
ED Past Medical History: CAD, PA and Other (Wheelchair , Chronic thompson, Paralysis Paraplegia, UTI, Hep C)
ED Past Surgical History: Cardiac (Stent), Orthopedic (Feet surgery, Spinal fusion with rods, Right femur plate, [place]delstone left femur) and Other (Ischial flap. )
Social History
Tobacco: Former smoker
Alcohol: None
Drug: None
Personal:
Living: with family
Review of Systems
Review of Systems
All Other Systems: ROS reviewed and negative except as documented in HPI and ROS
Constitutional: Reports fever (Low grade); Denies chills
EENT: Reports no symptoms
Respiratory: Reports no symptoms; Denies cough or trouble breathing
Cardiac: Reports no symptoms; Denies chest pain
ABD/GI: Reports nausea; Denies abdominal pain, vomiting or diarrhea
: Reports dark urine
Musculoskeletal: Reports no symptoms
Skin: Reports no symptoms
Neurological: Reports no symptoms; Denies dizzy or headache
Psychiatric: Reports no symptoms
Phy Exam
General Physical Exam
General Presentation: no apparent distress
General age: appears stated age
General Skin: warm and dry
General Habitus: debilitated
General Mental: alert
General Hydration: dry mucous membranes
ENT Exam
ENT Exam: TM's normal, pharynx normal and neck supple
Eye Exam
Eye Exam: EOMI
Cardiovascular Exam
Cardiovascular Exam: regular rate/rhythm, no edema and normal peripheral pulses
Pulmonary Exam
Pulmonary Exam: lungs clear, no respiratory distress, no rales, chest non tender, no crackles, no rhonchi, no wheezing and no cough
Gastrointestinal Exam
Gastrointestinal Exam: normal bowel sounds, non tender, soft, no organomegaly, no pulsatile mass and non distended
Musculoskeletal Exam
Musculoskeletal Exam: no edema and other (Paraplegia, Foot drop, )
Skin Exam
Skin Exam: normal color, warm/dry, no petechia and other (Open wound on the sacral area, negative for any redness)
Psychiatric Exam
Psychiatric Exam: normal mood/affect
Course
Orders/Labs/Results
Orders:
Orders
04/30/24 22:13
0.9% Sodium Chloride 1000 ml [Nss] 1,000 ml IV BOLUS
04/30/24 23:12
Lactic Acid Urgent
04/30/24 23:17
Complete Blood Count/With Diff Urgent
Comprehensive Metabolic Panel Urgent
04/30/24 23:30
Urinalysis Reflex To Culture Urgent
Date Specimen was Collected: 04/30/24
Time Specimen was Collected: 22:15
Urine Microscopic Reflex Cult Urgent
Urine Culture Urgent
AKILA Source: U
Specimen Description:
Date Specimen was Collected: 04/30/24
Time Specimen was Collected: 22:15
05/01/24 01:21
Ertapenem [Invanz] 1,000 mg 0.9% Sodium Chloride [Nss] 50 ml IV NOW
05/01/24 01:25
Ertapenem [Invanz] 1,000 mg 0.9% Sodium Chloride [Nss] 50 ml IV NOW
Abnormal Lab Results
04/30/24 04/30/24
23:17 23:30
WBC 14.4 H 10^3/uL
(4.8-10.8)
MCV 78.1 L fL
(80.0-94.0)
RDW 15.9 H %
(11.5-14.5)
Abs Immat Gran (auto) 0.1 H 10^3/uL
(0-0.05)
Absolute Neuts (auto) 11.8 H 10^3/uL
(1.4-6.5)
Absolute Lymphs (auto) 1.1 L 10^3/uL
(1.2-3.4)
Absolute Monos (auto) 1.5 H 10^3/uL
(0.1-0.6)
Neutrophils % 81.8 H %
(42.2-75.2)
Lymphocytes % 7.3 L %
(20.5-51.1)
Monocytes % 10.3 H %
(1.7-9.3)
Sodium 134 L mmol/L
(135-145)
BUN 39 H mg/dl
(9-20)
Creatinine 1.4 H mg/dL
(0.7-1.3)
Glucose 102 H mg/dl
(70-99)
Total Bilirubin 1.9 H mg/dl
(0.2-1.3)
Ur Occult Blood Reflex 4+ A
(Negative)
Leukocyte Esterase Rfl 2+ A
(Negative)
Urine RBC 30-40 A /HPF
(0-2)
Urine WBC (Reflex) >100 A /HPF
(0-5)
Urine Bacteria (Reflex) Moderate A
(Negative)
04/30/24 23:17
04/30/24 23:17
Leukocytosis, Dehydration. Acute renal insufficiency, Glucose nonfasting. Total nely mildly elevated. Lactic normal at 1.3. Urine positive for infection.
Vital Signs
Initial and Last Documented VS:
Initial Vital Signs
Temp Pulse Resp BP Pulse Ox
98.6 F 93 19 146/78 97
04/30/24 20:33 04/30/24 20:33 04/30/24 20:33 04/30/24 20:33 04/30/24 20:33
Last Documented Vital Signs
Temp Pulse Resp BP Pulse Ox
98.6 F 93 19 146/78 97
04/30/24 20:33 04/30/24 20:33 04/30/24 20:33 04/30/24 20:33 04/30/24 20:33
MDM/Problems Addressed
Differential Diagnosis Includes:
UTI,
MDM/Problems Addressed:
This is a 68 year old male that comes in with c/o brown urine. States that he thinks he has a UTI and that his catheter was changed before he came in as it was clogged. States that he had some back pain but this was better after he changed his
catheter.
will get labs, Urine, Give IV fluids.
Back into see patient. Explained that he will be admitted as he has a Urinary tract infection. Explained to patient that he was also very dehydrated. States that he is feeling better since he had some fluid but prior he was nauseated to he was not
drinking. Will admit and start IV antibiotics. . Hospitalist notified.
Chronic conditions affecting care:
Chronic indwelling thompson, UTI
Acute Exacerbation and/or Progression of Chronic Illness:
UTI
*Pulse Oximetry
Patient hypoxic: no
*EKG
Interpreted by ED Provider?: NA
Comparison EKG: changes noted
*Unindentured Apprentice Interpretation
Rate: Unindentured Apprentice- N/A
*Critical Care Note
Total Time (30-74mins, 75-104mins- exclusive of procedures): Not Applicable
ED Attending Note
-
Portions of this chart may have been created with voice recognition software.� Occasional wrong word or��sound alike� substitutions may have occurred due to the inherent limitations of voice recognition software.
Discharge Plan
Departure
Patient Disposition: Admit
Date of Disposition: 05/01/24
Time of Disposition: 01:27
Admit to: Med/Surg
Presentation/result/management discussed w/ accepting MD/DO: Hospitalist
Patient with high blood pressure during this ER visit?: Yes
Condition: Good
Covid-19: Not Applicable
Discharge Problem:
Complicated urinary tract infection
Prescriptions:
No Action
therapeutic multivitamin Tablet
1 tab PO BID
acetaminophen [Tylenol Extra Strength] 500 mg Tablet
1,000 mg PO DAILYPRN PRN (Reason: fever)
ascorbic acid (vitamin C) [Vitamin C] 500 mg Tablet
500 mg PO HS
Eliquis 5 mg Tablet
5 mg PO BID
atorvastatin 40 MG tablet
40 mg PO HS
sulfamethoxazole-trimethoprim 400-80 mg Tablet
1 tab PO BID 14 Days Qty: 28 0RF
Referrals:
Yanick Montoya DO [Family Provider] -
Interventions
Interventions:
*Risk Screen - Suicide Last Done: 04/30/24 20:29
*General Assessment Last Done: 04/30/24 20:29
*Neglect/Abuse Screening Last Done: 04/30/24 20:29
ED- Fall Risk Assessment Last Done: 05/01/24 01:06
*ED COVID-19 Vaccine History Last Done: 04/30/24 20:29
ED-Male Genitourinary Assessment Last Done: 04/30/24 22:30
Discharge Date and Time
Print Language: [place] CITIZ[place]
[2024-04-30] MEDS: NSS 1000 IV (23:20)
[2024-04-30 23:27] LABS: % Basophils 0.2 % (0-2); % Eosinophils 0.1 % (0-6); % Immature Granulocytes 0.3 % (0-0.5); % Lymphocytes 7.3 % (20.5-51.1); % Monocytes 10.3 % (1.7-9.3); % Neutrophils 81.8 % (42.2-75.2); Absolute Immature Granulocytes 0.1 10^3/uL (0-0.05); Absolute Lymphocytes 1.1 10^3/uL (1.2-3.4); Absolute Monocytes 1.5 10^3/uL (0.1-0.6); Absolute Neutrophils 11.8 10^3/uL (1.4-6.5); Hematocrit 41.4 % (39.0-52.0); Hemoglobin 14.3 g/dL (13.0-18.0); Mean Corp Hgb Conc. 34.5 g/dL (33.0-37.0); Mean Corpuscular Volume 78.1 fL (80.0-94.0); Mean Platelet Volume 9.1 fL (7.4-10.4); Nucleated Red Blood Cells % 0 % (-); Platelet Count 235 10^3/uL (130-400); Red Cell Dist. Width 15.9 % (11.5-14.5); White Blood Cell Count 14.4 10^3/uL (4.8-10.8)
[2024-04-30 23:43] LABS: ALT (SGPT) 20 U/L (0-50); AST (SGOT) 30 U/L (17-59); Albumin 3.7 g/dl (3.5-5.0); Alkaline Phosphatase 76 U/L (38-126); Blood Urea Nitrogen 39 mg/dl (9-20); Calcium 9.2 mg/dl (8.4-10.2); Carbon Dioxide 24 mmol/L (22-30); Chloride 99 mmol/L (98-107); Glucose 102 mg/dl (70-99); Potassium 3.8 mmol/L (3.5-5.1); Sodium 134 mmol/L (135-145); Total Bilirubin 1.9 mg/dl (0.2-1.3); Total Protein 6.6 g/dl (6.3-8.2); eGFR 55.09
[2024-04-30 23:43] LABS: Lactic Acid 1.3 mmol/L (0.7-2.0)
[2024-04-30 23:45] LABS: Urine Albumin Trace (Neg - Trace); Urine Bilirubin Negative (Negative); Urine Character Slightly Cloudy (Clear); Urine Color Yellow; Urine Glucose Negative (Negative); Urine Ketone Negative (Negative); Urine Leukocyte 2+ (Negative); Urine Nitrite Negative (Negative); Urine Occult Blood 4+ (Negative); Urine Specific Gravity 1.005 (<1.030); Urine Urobilinogen Negative (Neg - 1+)
[2024-05-01 00:19] LABS: Urine Bacteria Moderate (Negative); Urine Red Blood Cell 30-40 /HPF (0-2); Urine White Cell >100 /HPF (0-5)
[2024-05-01] MEDS: INVANZ 60 MG IV (01:48)
[2024-05-01 02:26] VITALS: BP 126/71
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
[2024-05-01 03:13] VITALS: BP 107/57
--- NOTE | 2024-05-01 03:15 | PTCARENOTE ---
Received pt from ED, pt paraplegic, slid over to bed. AAOx3, VSS. Oriented to room, call mendoza and plan of care.
[2024-05-01] MEDS: NSS 1000 IV ×2 (03:39→13:21)
[2024-05-01 03:53] VITALS: BMI 25.7
[2024-05-01] MEDS: STERILE WATER FOR INJECTION 20 ML IV ×3 (05:51→21:49)
[2024-05-01] MEDS: MERREM 1000 MG IV ×3 (05:51→21:49)
[2024-05-01 07:00] VITALS: BP 102/55
[2024-05-01 08:03] LABS: Hematocrit 38.3 % (39.0-52.0); Hemoglobin 12.8 g/dL (13.0-18.0); Mean Corp Hgb Conc. 33.4 g/dL (33.0-37.0); Mean Corpuscular Hgb 26.6 pg (27.0-31.0); Mean Corpuscular Volume 79.6 fL (80.0-94.0); Mean Platelet Volume 9.6 fL (7.4-10.4); Platelet Count 218 10^3/uL (130-400); Red Blood Cell Count 4.81 10^6/uL (4.70-6.10); Red Cell Dist. Width 15.9 % (11.5-14.5); White Blood Cell Count 9.7 10^3/uL (4.8-10.8)
[2024-05-01 08:27] LABS: Blood Urea Nitrogen 28 mg/dl (9-20); Carbon Dioxide 24 mmol/L (22-30); Chloride 108 mmol/L (98-107); Estimated Creatinine Clearance 101 ml/min; Glucose 94 mg/dl (70-99); Potassium 3.5 mmol/L (3.5-5.1); Sodium 139 mmol/L (135-145); eGFR > 60.00
[2024-05-01] MEDS: ELIQUIS 5 MG PO ×2 (08:41→21:48)
[2024-05-01] MEDS: THERAGRAN 1 TABLET PO ×2 (08:41→21:48)
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
--- NOTE | 2024-05-01 10:26 | WOUNDNOTE ---
[facility] RN note: Patient admitted with UTI
See H&P for complete history.
PMH: Paraplegia, CAD, DE, UTI's/ chronic thompson, left ischial flap 2020
Wound Location and type/assessment: Patient admitted with healing stage 3 sacral wound, full thickness left groin wound and healing stage 2 of right hip. Patient is a good historian and follows with Dr. Mclain and [facility]. He has VN for wound
care 3 x week. Patient prefers to keep to usual regimen for wound care that has been ordered by Dr. Mclain. After assessment, current wound care seems appropriate. None of the wounds appear infected and all appear to be progressing toward healing.
The sacral wound appears to be a healing stage 3 PI. The right hip appears to be a superficial stage 2 that is covered with a scab. The left groin full thickness wound is granular with a moderate amount of drainage. Patient reports having gel
cushion in wheelchair and is able to turn with minimal assistance. He has a memory foam wedge for heels when he lays on back. He declines use of boots in hospital and prefers heels to be off-loaded with pillows.
Appetite: Good
Pressure redistribution devices in place: Air bed, heels off-loaded
Plan: All wound care provided as ordered. Patient will continue to follow up with Dr. Mclain after discharge. Will confirm orders with hospitalist and update nurse.
Updated care plan and will follow as needed.
--- NOTE | 2024-05-01 11:04 | WOUNDNOTE ---
LEFT HIP HEALED FLAP
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
[2024-05-01 15:00] VITALS: BP 94/51
--- NOTE | 2024-05-01 15:37 | CM ---
Patient seen bedside.
IA completed.
Patient lives with his son in a 1 story home with no nsteps to enter.
patient independent prior to admission, is WC bound.
Patient is retired.
patient does drive.
Patient is current with VN.
Referral for [facility] to resume services sent.
PCP; Dr Montoya
[facility] will [facility] home.
[2024-05-01] MEDS: LIPITOR 40 MG PO (21:53)
[2024-05-01] MEDS: VITAMIN C 500 MG PO (21:54)
[2024-05-01] MEDS: TYLENOL 1000 MG PO (22:02)
[2024-05-01 23:00] VITALS: BP 114/55
[2024-05-02] MEDS: NSS 1000 IV (01:29)
[2024-05-02] MEDS: MERREM 1000 MG IV (05:32)
[2024-05-02] MEDS: STERILE WATER FOR INJECTION 20 ML IV (05:33)
[2024-05-02 07:00] VITALS: BP 121/59
[2024-05-02] MEDS: ELIQUIS 5 MG PO (08:56)
[2024-05-02] MEDS: THERAGRAN 1 TABLET PO (09:05)
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
--- NOTE | 2024-05-02 11:16 | W.DS.TRANS ---
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
-
Discharge Instructions:
Discharge Diagnosis/Procedures Obstructed Li catheter, UTI
Diet Regular
Activity As tolerated
Driving Restrictions As prior to admission
Bathing Restrictions None
Instructions:
Stand-Alone Forms:
Changes to Home Medications: No
Discharge Medications:
DC Medications w/original date entered in [employer]
acetaminophen 500 mg tablet (Tylenol Extra Strength) 1,000 mg PO DAILYPRN PRN fever 03/05/24
apixaban 5 mg tablet (Eliquis) 5 mg PO BID Blood Clot Prevention/Tx 03/05/24
ascorbic acid (vitamin C) 500 mg tablet (Vitamin C) 500 mg PO HS Supplement 03/05/24
atorvastatin 40 mg tablet 40 mg PO HS High Cholesterol 03/05/24
therapeutic multivitamin 1 tab PO BID Supplement 03/05/24
sulfamethoxazole 800 mg-trimethoprim 160 mg tablet (Bactrim DS) 1 tab PO BID #12 tabs 05/02/24
Home Medication Changes
Pending Results: No
--- NOTE | 2024-05-02 12:06 | CM ---
Patient for d/c home with [facility]N.
IMM completed.
Son will transport.
Plan: home with [facility]
--- NOTE | 2024-05-02 13:08 | W.PN.ID1 ---
Date of Service
Date of Service: May 02, 2024
Today's Communication
Can transition meropenem to Bactrim DS 1 tab bid through 05/07/24.
Assessment / Plan
#CAUTI
Conditions prior to admission
History of complicated UTI
Paraplegia
Chronic Li
Sacral and inguinal wounds
Recommendations
CAUTI
-Possibly due to transient Li obstruction
� Patient is afebrile, leukocytosis resolved
� Urine culture negative
-Can transition meropenem to Bactrim DS 1 tab bid through 05/07/24.
-Continue wound care.
Subjective / Review of Systems
Feels better.
Vital Signs / Physical Exam
Vital Signs
Vital Signs
Temp Pulse Resp BP Pulse Ox
98.0 F 66 16 121/59 99
05/02/24 07:00 05/02/24 07:00 05/02/24 07:00 05/02/24 07:00 05/02/24 07:00
Physical Exam
Constitutional: No Acute Distress and Comfortable
Gastrointestinal: Soft, Non Tender and Non Distended
Genito-Urinary: Li and Clear Urine
Objective Data
Lab Data
Lab Results
05/01/24 07:22
05/01/24 07:22
Estimated Creat Clear 101 ml/min 05/01/24 07:22
Lactic Acid 1.3 mmol/L (0.7-2.0) 04/30/24 23:12
Total Bilirubin 1.9 mg/dl (0.2-1.3) H 04/30/24 23:17
AST 30 U/L (17-59) 04/30/24 23:17
ALT 20 U/L (0-50) 04/30/24 23:17
Alkaline Phosphatase 76 U/L (38-126) 04/30/24 23:17
Most recent labs reviewed.
Micro Results:
04/30/24 23:30 Urine Culture - Final
Urine No Significant Growth
05/01/24 03:39 MRSA Screen - Final
Nose No Methicillin Resistant Staphylococcus aureus isolated.
Care Review
Plan reviewed with: Physician (Dr. Siegel)
[2024-05-02 14:19] VITALS: BP 128/72
[2024-05-02] MEDS: MERREM IV (15:00)
== END 2024-05-02 15:02 | disposition home health service (06) | DRG 699 ==
LOC: 4 WEST ACU 03:08
PROVIDERS: Clinical Nurse Specialist Family Health; Emergency Medicine; ADMITTING PHYSICIAN Hospitalist; ATTENDING PHYSICIAN Hospitalist; CONSULT PHYSICIAN Internal Medicine Infectious Disease; EMERGENCY PHYSICIAN Emergency Medicine; FAMILY PHYSICIAN Student in an Organized Health Care Education/Training Program
DX: T83.511A Infection and inflammatory reaction due to indwelling urethral catheter, initial encounter (principal); G82.20 Paraplegia, unspecified; N17.9 Acute kidney failure, unspecified; I50.22 Chronic systolic (congestive) heart failure; T83.091A Other mechanical complication of indwelling urethral catheter, initial encounter; N13.9 Obstructive and reflux uropathy, unspecified; N39.0 Urinary tract infection, site not specified; L89.159 Pressure ulcer of sacral region, unspecified stage; S71.001A Unspecified open wound, right hip, initial encounter; S31.104A Unspecified open wound of abdominal wall, left lower quadrant without penetration into peritoneal cavity, initial encounter; X58.XXXA Exposure to other specified factors, initial encounter; I25.10 Atherosclerotic heart disease of native coronary artery without angina pectoris; I25.5 Ischemic cardiomyopathy; Z95.5 Presence of coronary angioplasty implant and graft; Z79.01 Long term (current) use of anticoagulants; Z79.899 Other long term (current) drug therapy; Z86.718 Personal history of other venous thrombosis and embolism; Z87.81 Personal history of (healed) traumatic fracture; Z87.891 Personal history of nicotine dependence
CPT/HCPCS: 80048; 80053; 81003; 81015; 83605; 85025; 85027; 87070; 87086; 96361; 96365; 99285; J1335; J2185

== ENCOUNTER → 2024-12-03 13:16 | Outpatient (REF) | payer OTHER, SELFPAY | LOC: CLAB 13:16 | PROVIDERS: ATTENDING PHYSICIAN Surgery | DX: N39.0 Urinary tract infection, site not specified (principal) | CPT/HCPCS: 87086 ==

== ENCOUNTER 2025-04-16 21:00 | Inpatient (IN) | payer OTHER, SELFPAY ==
[2025-04-16] VITALS (13 sets, daily range): BP systolic 92–137; BP diastolic 48–99
--- NOTE | 2025-04-16 12:51 | ED.GENMED ---
History of Present Illness
General
Chief Complaint: Urinary Symptoms
Source: patient
Exam Limitations: none
Time Seen by Provider: 04/16/25 12:19
Nursing documentation reviewed up to this point in time: agreed with
History of Present Illness
History of Present Illness:
The patient is a 69-year-old male with a history of spinal cord injury, hx DVT on Eliquis, presenting with difficulty in self-catheterizing over the past few months, having to lay down to cath instead of doing it sitting as usual. Dr. Beard,
Urology aware of this difficulty and pt was treated for UTI several weeks ago. About three weeks ago, the patient experienced bleeding during catheterization. Last night, he was unable to insert the catheter at all and notes a significant amount of
bleeding, including clots. The patient reports feeling full and uncomfortable, with fever reaching 100�F this morning. The last successful self-catheterization was yesterday afternoon.
Denies n/v/d/c.
Incidentally: Patient has a chronic wound on his left hip, it was debrided at [facility] yesterday and visiting nurse came today to change the dressing and noted his temperature to be 100.0. He is afebrile on arrival.
Past History
Past History
ED Past Medical History: CAD, [place] and Other (Wheelchair , Chronic thompson, Paralysis Paraplegia, UTI, Hep C)
ED Past Surgical History: Cardiac (Stent), Orthopedic (Feet surgery, Spinal fusion with rods, Right femur plate, Gurdelstone left femur) and Other (Ischial flap. )
Social History
Tobacco: Former smoker
Alcohol: None
Drug: None
Personal:
Living: with family
Review of Systems
Review of Systems
Allergies reviewed?: Yes
All Other Systems: ROS reviewed and negative except as documented in HPI and ROS
Constitutional: Denies fever or chills
Respiratory: Denies trouble breathing
Cardiac: Denies chest pain
ABD/GI: Denies nausea, vomiting or diarrhea
: Reports other (Acute urine retention, inability to self catheterize, bleeding from penis)
Musculoskeletal: Reports other
Neurological: Reports other (Hemiplegia)
Phy Exam
Physical Exam
Physical Exam:
GENERAL: No acute distress. A&Ox3.
CONSTITUTIONAL: Afebrile.
EYES: clear, conjunctivae normal
ENMT: moist mucus membranes, Pharynx nl
RESPIRATORY: Regular respirations, nonlabored, lungs clear.
CARDIOVASCULAR: Regular rate and rhythm, no murmurs, no rubs.
GI: Soft, suprapubic tenderness. normal BS
: Patient has a condom catheter in place, moderate amount of bright red blood with clots in the catheter and in the perineal area
MUSCULOSKELETAL: Moves with ease. Well perfused.
SKIN: Warm, dry, pink
PSYCH: Normal mood and affect. Well kept, interactive and appropriate
NEUROLOGIC: Awake, alert and oriented. Paraplegia
Course
Orders/Labs/Results
Orders:
Orders
04/16/25 12:22
Bladder Scan- Treatment ONCE
04/16/25 12:49
CBI- Treatment PRN
Solution: NSS
Irrigate to Clear?: Yes
04/16/25 12:51
Lidocaine 2% [Lidocaine Uro-Jet 2%] 1 syringe .ROUTE .STK-MED ONE
04/16/25 13:20
Complete Blood Count/With Diff Urgent
Comprehensive Metabolic Panel Urgent
04/16/25 Dinner
Regular
At Your Request: Full Participation
04/16/25 16:02
Lorazepam [Ativan] 1 mg IV NOW STA
04/16/25 16:03
CT Abd/Pel (IV only)-DH only Urgent
Comment:
Reason For Exam: blockage urethra unable to cath, Dr. Chirag ames
04/16/25 17:13
Fentanyl Citrate/Pf [Sublimaze] 25 mcg IV [id number] PRN
Fentanyl Citrate/Pf [Sublimaze] 25 mcg IV [id number] PRN
Fentanyl Citrate/Pf [Sublimaze] 50 mcg IV PACU-Q5MPRN PRN
Ondansetron Injectable [Zofran] 4 mg IV PACU-ONCEPRN PRN
Prochlorperazine [Compazine] 5 mg IV PACU-ONCEPRN PRN
Notify MD As Directed
Notify physician if: for SDS patients with known or suspected sleep obstructive sleep apnea, monitor in the
PACU.
Notify MD for any apneic/desaturation episodes
O2 Therapy [RESP] Urgent
Titrate/Wean O2 to maintain O2 sat greater than (%): 92
Special Instructions: -Provide supplemental oxygen to achieve O2 sat of 92% or greater.
-After 15 min, may wean O2 and discontinue if patient is able to maintain O2 sat of 92%
or greater during recovery period.
If patient is a discharge home, without oxygen therapy, notify anestheiologist if
unable to maintain O2 SAT of 92% or greater on room air for MD clearance.
04/16/25 17:15
Normosol (Mult Electrolytes) [Normosol-R/Plasmalyte-A] 1,000 ml IV PER PROTOCOL
04/16/25 17:22
Dexamethasone Sod Phosphate [Decadron] 20 mg .ROUTE .STK-MED ONE
Lidocaine HCl/Pf [Xylocaine-Mpf 1% Vial] 50 mg .ROUTE .STK-MED ONE
Phenylephrine HCl/0.9% NaCl [Yaron-Synephrine] 1,000 mcg .ROUTE .STK-MED ONE
Propofol [Diprivan] 20 ml .ROUTE .STK-MED
04/16/25 17:25
LevoFLOXacin 500 MG/100 ML [Levaquin] 500 mg in 100 ml .ROUTE .STK-MED
04/16/25 17:40
LevoFLOXacin 500 MG/100 ML [Levaquin] 500 mg in 100 ml IV ONCE
04/16/25 18:04
Furosemide [Lasix] 40 mg .ROUTE .STK-MED ONE
04/16/25 18:32
Urine Culture Reflexed from UA [Urinalysis Reflex To Culture] Urgent
04/16/25 19:05
Admit/Transfer Patient As Directed
Co-Sign Provider:
Level of Care: Inpatient admission
Assign to:: Medical/Surgical
Physician / Group: Angélica Washburn
Diagnosis: urethral perforation, bilateral hydronephrosis possible underlying congenit
Reason for Hospitalization: urethral perforation, bilateral hydronephrosis possible underlying congenital UPJ
obstruction likely secondary to underlying neurogenic bladder.
Expected length of stay greater than two midnights?: Yes
ELOS- Estimated Length of Stay in days: 3
I certify the patient meets the requirements for IP care: Yes
04/16/25 19:06
PRN Pain Medication Management As Directed
May give lesser potent ordered pain med per pt: Yes
preference::
Protocol:: Medication orders for pain may be administered in a
manner that supports deferring to patient preference
when the pt is:
- Requesting an ordered lesser potent pain medication.
Least to most potent pain medications are defined
as: acetaminophen < NSAID < tramadol < opioids
(morphine, oxycodone, hydromorphone).
- Requesting a lesser dose of the same medication IF
ORDERED.
- Requesting a less intrusive route of administration
if both routes are prescribed by the provider (PO <
IV).
04/16/25 19:09
Code Status As Directed
Resuscitation Status: Full Code
04/16/25 20:08
Consult Infectious Disease [INFECTIOUS DISEASE CONSULT] Routine
Consulting Provider: Tita Haywood
Was physician already notified: Yes
Reason for consult: urethral abscess, antibiotic recommendations
04/16/25 20:10
Acetaminophen [Tylenol] 650 mg PO Q4HPRN PRN
04/16/25 20:10
Activity As Directed
Activity Level: As Tolerated
Intake/ Output As Directed
Frequency: Per unit guidelines
Pneumatic Compression Sleeves As Directed
Type: Knee high
Vital Signs As Directed
Frequency: Per unit guidelines
Weight As Directed
Frequency: Once
Comment: on admission
DX Deep Vein Thrombosis Video Routine
04/16/25 21:00
Flush (0.9% Sodium Chloride) [Flush (Nss)] See Dose Instructions IV PER PROTOCOL
04/16/25 22:00
Atorvastatin [Lipitor] 40 mg PO HS
Ertapenem [Invanz] 1,000 mg 0.9% Sodium Chloride [Nss] 50 ml IV Q24H
04/17/25 06:00
Basic Metabolic Panel IN AM
Complete Blood Count/No Diff IN AM
04/17/25 08:00
Multivitamin [Theragran] 1 tablet PO DAILY
Abnormal Lab Results
04/16/25
13:20
WBC 13.1 H 10^3/uL
(4.8-10.8)
RDW 14.9 H %
(11.5-14.5)
Absolute Neuts (auto) 11.0 H 10^3/uL
(1.4-6.5)
Absolute Lymphs (auto) 1.0 L 10^3/uL
(1.2-3.4)
Absolute Monos (auto) 1.0 H 10^3/uL
(0.1-0.6)
Neutrophils % 84.5 H %
(42.2-75.2)
Lymphocytes % 7.5 L %
(20.5-51.1)
Creatinine 0.5 L mg/dL
(0.7-1.3)
Glucose 106 H mg/dl
(70-99)
Total Bilirubin 1.6 H mg/dl
(0.2-1.3)
AST 14 L U/L
(17-59)
04/16/25 13:20
04/16/25 13:20
Vital Signs
Initial and Last Documented VS:
Initial Vital Signs
Temp Pulse Resp BP Pulse Ox
98.9 F 91 18 117/79 98
04/16/25 11:42 04/16/25 11:42 04/16/25 11:42 04/16/25 11:42 04/16/25 11:42
Last Documented Vital Signs
Temp Pulse Resp BP Pulse Ox
97.4 F 82 20 97/76 98
04/16/25 20:00 04/16/25 20:00 04/16/25 20:00 04/16/25 20:00 04/16/25 20:00
MDM/Problems Addressed
Differential Diagnosis Includes:
The Differential Diagnosis includes, in no particular order and is not limited to:
1. Urinary retention
2. Urethral stricture
3. Bladder outlet obstruction
4. Prostatic hypertrophy
5. Neurogenic bladder
6. Urethral trauma
7. Urinary tract infection
8. Infection of the urogenital tract
9. Catheter-associated injury
MDM/Problems Addressed:
The patient is a 69-year-old male with a history of spinal cord injury, hx DVT on Eliquis, presenting with difficulty in self-catheterizing over the past few months, having to lay down to cath instead of doing it sitting as usual. Dr. Beard,
Urology aware of this difficulty and pt was treated for UTI several weeks ago. About three weeks ago, the patient experienced bleeding during catheterization. Last night, he was unable to insert the catheter at all and notes a significant amount of
bleeding, including clots. The patient reports feeling full and uncomfortable, with fever reaching 100�F this morning. The last successful self-catheterization was yesterday afternoon.
Incidentally: Patient has a chronic wound on his left hip, it was debrided at [facility] yesterday and visiting nurse came today to change the dressing and noted his temperature to be 100.0. He is afebrile on arrival.
Denies n/v/d/c.
Bladder scan: 810 milliliters of urine, signifying incomplete bladder emptying.
[address] CBI ordered
Acute Problems:
- Incomplete bladder emptying
- Difficulty with self-catheterization
- Recent urinary tract infection
-significant hematuria w clots
Chronic Problems:
- Spinal cord injury
Plan:
- Perform a continuous bladder irrigation using a three-way catheter to remove clots and relieve the bladder.
- Apply local anesthetic gel prior to catheter insertion to minimize discomfort.
- Reassess the patients status post-irrigation and coordinate with the urologist for further management if necessary.
1:15 PM
Nurses report inability to insert #22 or #18 Thompson catheter or #18 coud� catheter.
Consulted Dr. Beard who requests trying #22 coude catheter which this examiner did with no success.
Pt tolerated procedure well, not much discomfort. No significant bleeding.
3:[address] Beard in
Unable to access bladder through catheterization
Will take to OR
Requests CT abd/pelvis w IV contrast, something to relax him (Ativan), may have to place suprapubic catheter in OR
Hospitalist notified that pt is in OR and needs to be admitted
6:[address] Beard notified me that pt is out of OR. I re-texted Hospitalist to let him know.
*Pulse Oximetry
SaO2: 98
Oxygen Mode of Delivery: Room air
Patient hypoxic: not evaluated
*Critical Care Note
Total Time (30-74mins, 75-104mins- exclusive of procedures): Not Applicable
ED Attending Note
-
Portions of this chart may have been created with voice recognition software.� Occasional wrong word or��sound alike� substitutions may have occurred due to the inherent limitations of voice recognition software.
Discharge Plan
Departure
Patient Disposition: OR
Date of Disposition: 04/16/25
Time of Disposition: 16:59
Admit to: Med/Surg
Presentation/result/management discussed w/ accepting MD/DO: Hospitalist
Condition: Fair
Discharge Problem:
Acute retention of urine, Hematuria
Interventions
Interventions:
*Risk Screen - Suicide Last Done: 04/16/25 11:42
*General Assessment Last Done: 04/16/25 11:42
*Neglect/Abuse Screening Last Done: 04/16/25 11:42
*Nursing Disposition Last Done: 04/16/25 16:59
ED-Male Genitourinary Assessment Last Done: 04/16/25 13:21
Discharge Date and Time
Discharge Date/Time: 04/16/25 17:00
[2025-04-16 13:26] LABS: Hematocrit 39.8 % (39.0-52.0); Hemoglobin 13.2 g/dL (13.0-18.0); Mean Corp Hgb Conc. 33.2 g/dL (33.0-37.0); Mean Corpuscular Volume 82.6 fL (80.0-94.0); Nucleated Red Blood Cells % 0 % (-); Platelet Count 269 10^3/uL (130-400); Red Cell Dist. Width 14.9 % (11.5-14.5)
[2025-04-16 13:39] LABS: ALT (SGPT) 15 U/L (0-50); AST (SGOT) 14 U/L (17-59); Albumin 3.5 g/dl (3.5-5.0); Alkaline Phosphatase 73 U/L (38-126); Blood Urea Nitrogen 16 mg/dl (9-20); Calcium 9.0 mg/dl (8.4-10.2); Carbon Dioxide 24 mmol/L (22-30); Chloride 107 mmol/L (98-107); Glucose 106 mg/dl (70-99); Potassium 3.7 mmol/L (3.5-5.1); Sodium 137 mmol/L (135-145); Total Protein 6.9 g/dl (6.3-8.2); eGFR > 60.00
[2025-04-16] MEDS: ATIVAN 1 MG IV (16:10)
--- NOTE | 2025-04-16 17:29 | W.SUR.PREOP ---
Pre-Operative Surgical Note
-
I have examined this patient prior to the performance of the scheduled procedure.
The patient's condition is unchanged from the time of the current History and
Physical and the patient is able to undergo the scheduled procedure.
Penile urethral trauma noted on CTAP w/ IV contrast - no evidence of rectal/anal involvement or fistula per Radiology.
To OR for cystoscopy + suprapubic tube placement
Continue holding Eliquis
Surgical consent signed on chart
D/w patient.
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
--- NOTE | 2025-04-16 20:09 | W.IMMPOSTOP ---
Surgical Immed Post Op Note
-
Primary Surgeon: Chirag
Pre-op Diagnosis:
1. Urethral perforation and abscess
2. Urethral trauma
3. Acute urinary retention w/ bilateral hydronephrosis
4. cUTI
5. Hematuria
Post-op Diagnosis: Same
Procedure Performed: cystoscopy, suprapubic tube insertion, bladder irrigation
Anesthesia Type: LMA
Specimen / Cultures: None/None
Estimated Blood Loss: 5 cc
Drains: 16Fr suprapubic catheter (15 cc in balloon)
Complications: None
Operative Findings:
1. Proximal penile urethral stricture w/ proximal dilation of urethra w/o identifiable urethral lumen.
2. Scrotal and perineal edema w/o loculated fluid collection or abscess.
3. Successful placement of 16Fr suprapubic catheter w/ immediate return of aqueous bloody urine - irrigated w/ 1000 cc of NS to clear (clots evacuated in entirety).
Patient's son updated postop via telephone.
--- NOTE | 2025-04-16 20:15 | PTCARENOTE ---
Received patient in bed from PACU accompanied by LENS MARKER's. Nursing assessment completed and as documented, wound care provided and protective dressings placed. Oriented to room/facility, instructed use of call mendoza and within reach, VSS, care
ongoing.
[2025-04-16] MEDS: INVANZ 60 MG IV (22:08)
[2025-04-16] MEDS: LIPITOR 40 MG PO (22:22)
[2025-04-16 22:33] LABS: Urine Character Slightly Cloudy (Clear)
[2025-04-16 22:59] LABS: Urine Red Blood Cell >100 /HPF (0-2); Urine Squamous Cell 0-2 /LPF (Few)
[2025-04-16 23:00] LABS: Urine White Cell >100 /HPF (0-5)
[2025-04-17] MEDS: ZOFRAN 4 MG IV (01:14)
[2025-04-17 06:00] VITALS: BMI 20.3
[2025-04-17 06:18] LABS: Hematocrit 39.9 % (39.0-52.0); Hemoglobin 13.2 g/dL (13.0-18.0); Mean Corp Hgb Conc. 33.1 g/dL (33.0-37.0); Mean Corpuscular Volume 82.8 fL (80.0-94.0); Platelet Count 286 10^3/uL (130-400); Red Cell Dist. Width 14.7 % (11.5-14.5)
[2025-04-17 06:47] LABS: Blood Urea Nitrogen 12 mg/dl (9-20); Calcium 9.1 mg/dl (8.4-10.2); Carbon Dioxide 25 mmol/L (22-30); Chloride 109 mmol/L (98-107); Estimated Creatinine Clearance 117 ml/min; Glucose 122 mg/dl (70-99); Potassium 4.0 mmol/L (3.5-5.1); Sodium 139 mmol/L (135-145); eGFR > 60.00
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
[2025-04-17 08:00] VITALS: BP 118/58
[2025-04-17] MEDS: THERAGRAN 1 TABLET PO (08:31)
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
--- NOTE | 2025-04-17 13:44 | CM ---
CM met with pt bedside
Pt resides with his son in a [place] with [place]
Pt is paraplegic and W/C bound, independent with transfers, all personal care, drives+
Pt is current with [facility]
PCP- Yanick Montoya
Rx- [facility]
Pt is POD#1 suprapubic cath placement
He does not have POAs
PT eval requested once appropriate
Discharge Disposition- anticipate home with [facility]
[2025-04-17 15:30] VITALS: BP 106/54
[2025-04-17] MEDS: INVANZ 60 MG IV (21:06)
[2025-04-17] MEDS: LIPITOR 40 MG PO (21:06)
[2025-04-17 23:02] VITALS: BP 114/67
[2025-04-18 06:37] LABS: Hematocrit 35.2 % (39.0-52.0); Hemoglobin 11.8 g/dL (13.0-18.0); Mean Corp Hgb Conc. 33.5 g/dL (33.0-37.0); Mean Corpuscular Volume 82.1 fL (80.0-94.0); Nucleated Red Blood Cells % 0 % (-); Platelet Count 269 10^3/uL (130-400); Red Cell Dist. Width 14.6 % (11.5-14.5)
[2025-04-18 06:58] LABS: Blood Urea Nitrogen 17 mg/dl (9-20); Calcium 8.3 mg/dl (8.4-10.2); Carbon Dioxide 23 mmol/L (22-30); Chloride 108 mmol/L (98-107); Estimated Creatinine Clearance 117 ml/min; Glucose 90 mg/dl (70-99); Magnesium 2.0 mg/dl (1.6-2.3); Potassium 3.8 mmol/L (3.5-5.1); Sodium 137 mmol/L (135-145); eGFR > 60.00
[2025-04-18 07:00] VITALS: BP 109/52
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
[2025-04-18] MEDS: THERAGRAN 1 TABLET PO (08:39)
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
--- NOTE | 2025-04-18 14:26 | W.PN.URO.CBU ---
Today's Communication / Plan
-
Continue IV Ertapenem per ID
Maintain SPT to drainage bag
Gentle irrigation of SPT q6hrs w/ 60 cc NSS/sterile water
VN consult for home SPT care
Resume Eliquis 04/19
Assessment / Plan
-
Urethral trauma and abscess
Acute urinary retention w/ bilateral hydronephrosis
cUTI
H/o neurogenic bladder s/p SCI
04/16: s/p cystoscopy + SPT placement (emergent)
exam demonstrates improvement in penile/scrotal/perineal edema and soft tissue swelling - no cellulitis, crepitus, or loculated fluid collections palpable
CT imaging 04/16 c/w urethral trauma and fluid collection indicative of abscess
Given clinical improvement in WBC curve and exam, will defer on percutaneous drain placement (IR)
Diagnosis
-
Date of Service: April 18, 2025
-
Patient Diagnosis:
Urethral trauma and abscess
Acute urinary retention w/ bilateral hydronephrosis
cUTI
H/o neurogenic bladder s/p SCI
Post Op Day:
04/16: s/p cystoscopy + SPT placement (emergent)
Subjective
-
Tolerating diet.
Urine whitney-tinged w/ minimal clot debris in tubing - draining well.
Objective
-
Vital Signs
Temp Pulse Resp BP Pulse Ox
98.4 F 67 14 109/52 98
04/18/25 07:00 04/18/25 07:00 04/18/25 07:00 04/18/25 07:00 04/18/25 07:00
Intake and Output
04/17/25 04/18/25 04/19/25
06:59 06:59 06:59
Intake Total 460 / 460 720 / 720 480 / 480
Output Total 3650 / 3650 1450 / 1450 500 / 500
Balance -3190 / -3190 -730 / -730 -20 / -20
Intake:
Oral fluids 360 / 360 720 / 720 480 / 480
IV fluids (Total) 100 / 100
Normosol 100 / 100
Output:
Urine, Li 650 / 650
Suprapubic output 3000 / 3000 1450 / 1450 500 / 500
Laboratory Results
04/18/25 05:50
04/18/25 05:50
Physical Exam
-
General - well developed, well nourished, no acute distress
Abdomen - soft, non-tender, non-tender
Genitalia - 16Fr SPT in place draining whitney urine, significant improvement in soft tissue swelling and edema of phallus, scrotum and perineum (significant swelling noted intraop 04/16)
Rectal - normal
Extremities - no clubbing, no cyanosis, no edema
Care Review
Data Reviewed
Discussed with: Hospitalist, Nursing and Family
CT Scan: Report Pers Reviewed and Image Pers Reviewed
Total Time Spent with Patient (in minutes): 50
[2025-04-18 15:00] VITALS: BP 118/66
[2025-04-18] MEDS: INVANZ 60 MG IV (21:17)
[2025-04-18] MEDS: LIPITOR 40 MG PO (21:18)
[2025-04-18 23:33] VITALS: BP 108/59
[2025-04-19 07:10] LABS: Hematocrit 37.0 % (39.0-52.0); Hemoglobin 12.0 g/dL (13.0-18.0); Mean Corp Hgb Conc. 32.4 g/dL (33.0-37.0); Mean Corpuscular Volume 82.8 fL (80.0-94.0); Nucleated Red Blood Cells % 0 % (-); Platelet Count 278 10^3/uL (130-400); Red Cell Dist. Width 14.6 % (11.5-14.5)
[2025-04-19 07:15] VITALS: BP 104/50
[2025-04-19] MEDS: THERAGRAN 1 TABLET PO (08:28)
--- NOTE | 2025-04-19 08:30 | VNURNOTE ---
Chart reviewed. Patient is current with VN. Will continue to follow hospital course and DC plans.
--- NOTE | 2025-04-19 08:38 | PTCARENOTE ---
Lex text to surgery, hospitalist and resident for official suprapubic catheter order
[2025-04-19 09:16] LABS: Blood Urea Nitrogen 15 mg/dl (9-20); Calcium 8.5 mg/dl (8.4-10.2); Carbon Dioxide 22 mmol/L (22-30); Chloride 111 mmol/L (98-107); Estimated Creatinine Clearance 117 ml/min; Glucose 96 mg/dl (70-99); Magnesium 2.0 mg/dl (1.6-2.3); Potassium 3.8 mmol/L (3.5-5.1); Sodium 139 mmol/L (135-145); eGFR > 60.00
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
--- NOTE | 2025-04-19 13:43 | CM ---
CM following re: discharge planning.
Reviewed pt's chart, met with pt.
CM consult to arrange VN services for catheter care and wound care noted. Pt is current with [facility] and pt will resume [facility] services upon the discharge,
[facility] liaison following.
Please fax discharge instructions to [facility] at [phone]
D/C plan: home with [facility] and family support.
CM will follow with discharge plan updates as hospitalization progresses
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
[2025-04-19 15:56] VITALS: BP 128/62
--- NOTE | 2025-04-19 16:27 | WOUNDNOTE ---
SACRAL BLISTER WITHIN WOUND
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
[2025-04-19] MEDS: ELIQUIS 5 MG PO (20:21)
[2025-04-19] MEDS: LIPITOR 40 MG PO (21:13)
[2025-04-19 23:05] VITALS: BP 115/64
[2025-04-20 06:11] LABS: Hematocrit 39.1 % (39.0-52.0); Hemoglobin 12.9 g/dL (13.0-18.0); Mean Corp Hgb Conc. 33.0 g/dL (33.0-37.0); Mean Corpuscular Volume 82.5 fL (80.0-94.0); Nucleated Red Blood Cells % 0 % (-); Platelet Count 302 10^3/uL (130-400); Red Cell Dist. Width 14.6 % (11.5-14.5)
[2025-04-20 06:35] LABS: ALT (SGPT) 29 U/L (0-50); AST (SGOT) 21 U/L (17-59); Albumin 3.1 g/dl (3.5-5.0); Alkaline Phosphatase 64 U/L (38-126); Blood Urea Nitrogen 16 mg/dl (9-20); Calcium 8.8 mg/dl (8.4-10.2); Carbon Dioxide 25 mmol/L (22-30); Chloride 109 mmol/L (98-107); Estimated Creatinine Clearance 117 ml/min; Glucose 100 mg/dl (70-99); Potassium 4.2 mmol/L (3.5-5.1); Sodium 140 mmol/L (135-145); Total Protein 6.6 g/dl (6.3-8.2); eGFR > 60.00
[2025-04-20 07:05] VITALS: BP 119/68
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
[2025-04-20] MEDS: ELIQUIS 5 MG PO (08:58)
[2025-04-20] MEDS: THERAGRAN 1 TABLET PO (08:58)
[2025-04-20] MEDS: SANTYL OINTMENT 1 APPLIC TOPICAL (08:58)
[2025-04-20 13:18] VITALS: BP 137/65; PULSE 70; O2SAT 98
[2025-04-20 14:18] VITALS: BP 137/65; PULSE 70; O2SAT 98
--- NOTE | 2025-04-20 14:36 | PTOTSP ---
PATIENT ABLE TO COMPLETE BED>WHEELCHAIR TRANSFER WITH SUPERVISION ONLY DUE TO UNFAMILIAR ENVIRONMENT AND DME. PATIENT FEELS THAT HE IS AT HIS BASELINE AND WILL BE ABLE TO PERFORM MOBILITY AT HOME WITHOUT DIFFICULTY DESPITE HAVING SUPRAPUBIC TUBE.
WILL DISCHARGE FROM P.T. SERVICES.
--- NOTE | 2025-04-20 14:59 | VNURNOTE ---
Chart reviewed. Spoke with patient, he confirms that he'd like to resume [facility] services. He is aware that the VN will reach out to him to schedule the visit. Resumption referral accepted in [facility].
--- NOTE | 2025-04-20 15:01 | CM ---
Met with patient at bedside
IMM benefit explained; form signed @ 1500
Plan: Discharge to home to with home health services from [facility]; friend will transport via [facility]
[2025-04-20 15:05] VITALS: BP 154/76
--- NOTE | 2025-04-20 18:30 | W.DCSUMMARY ---
Addendum entered and electronically signed by Humphrey Gunn MD 04/20/25 22:39:
Read, reviewed, and agree. See same day progress note for additional details.
Gianni Gunn MD
Original Note:
Documented by User: Meir Zamora MD, Resident 04/20/25 20:01
Discharge Summary
Discharge Data
Date of Admission: 04/16/25
Date of Discharge: 04/20/25
-
Pending Results: No
Hospital Course
Discharging Physician : Dr. Meir Zamora; Dr. Humphrey Gunn
Disposition : Home with home care
Primary care physician : Unknown
Principal Discharge diagnosis : Acute urinary retention 2/2 bladder outlet obstruction; severe bilateral hydronephrosis
Chronic Discharge diagnosis : Multiple wounds; paraplegia; ASCVD; chronic HFpEF
Hospital Course : Patient was a 69-year-old male with paraplegia who presented to the [place] ED with complaint of difficulty urinating. Patient was evaluated by urology and underwent emergent cystoscopy and suprapubic tube insertion. Patient had
leukocytosis and CT scan of the abdomen suggested possible ureteral perforation/abscess, which prompted treatment with broad-spectrum antibiotics. Urine cultures were negative and patient remained clinically stable, and antibiotics were subsequently
discontinued. Patient's suprapubic tube remained clean, dry, and intact, with urine draining without issue.
Problem #1: Acute urinary retention 2/2 bladder outlet obstruction; severe bilateral hydronephrosis. Patient was evaluated by urology and underwent emergent cystoscopy and suprapubic tube insertion to relieve bladder outlet obstruction. Patient's
renal function remained stable for the duration of his hospital stay. Patient was treated with Ertapenem for 3 days due to suspected ureteral perforation/abscess and leukocytosis. After leukocytosis resolved and patient remained clinically stable,
the antibiotic was discontinued.
Problem #2: Multiple wounds in the setting of paraplegia. Patient had inguinal, sacral, and buttocks wounds, which were maintained by the wound care team. The wounds did not progress, and the patient remained clinically stable.
Problem #3: ASCVD. Patient was treated with atorvastatin for his cardiovascular disease, which did not progress during his hospital stay.
Problem #4: Chronic HFpEF. Patient had no evidence of volume overload during his hospital course.
Important imaging findings : CT Abdomen/Pelvis Impression: 1. Ureteral perforation/abscess. There is adjacent and surrounding enhancing soft tissue stranding and skin thickening, consistent with cellulitis. 2. Severe bilateral hydronephrosis with
markedly distended intrarenal collecting system and delayed contrast excretion. Mild to moderate distention of the ureters.
Procedure findings : Cystoscopy, suprapubic tube insertion, bladder irrigation: 1. Proximal penile urethral stricture w/ proximal dilation of urethra w/o identifiable urethral lumen.
2. Scrotal and perineal edema w/o loculated fluid collection or abscess.
3. Successful placement of 16Fr suprapubic catheter w/ immediate return of aqueous bloody urine - irrigated w/ 1000 cc of NS to clear (clots evacuated in entirety).
Discharge Plan
-
Patient Disposition: Home with Home Care
Discharge Diagnosis/Procedures: Acute urinary retention 2/2 bladder outlet obstruction w/ bilateral hydronephrosis
Condition: Good
Diet: As tolerated
Activity: As tolerated
Driving Restrictions: As prior to admission
Bathing Restrictions: None
Activity Restrictions/Additional Instructions:
Wound Care Instructions
L upper buttock: clean with saline or vashe, skin prep periwound, Santyl to slough, alginate and silicone foam. change daily and prn drainage.
Sacrum: clean with saline or vashe, Alginate over blister then sacral silicone foam change q other day and prn drainage.
Heels: skin prep and Foam adhesives change q 3 days and prn soilage
R hip: silicone foam to protect, change q 3 days and prn soilage
Air mattress Recommended with turning schedule, ROHO cushion to wheelchair
Increase protein in diet.
Follow up at [place]
Referrals:
Ricki Beard MD [Active, Urology]
Referral Note: Please call [facility] to schedule a suprapubic catheter change in [address] Beard.
NONE,* [Family Provider, Internal Medicine]
Prescriptions:
Continued
therapeutic multivitamin Tablet
1 tab PO DAILY
Eliquis 5 mg Tablet
5 mg PO BID
atorvastatin 40 MG tablet
40 mg PO HS
Discharge Orders:
Discharge Patient (As Directed); Ordered 04/20/25
Ordered By: Meir Zamora
Discharge Date and Time
Discharge Date/Time: 04/20/25 16:56
Print Language: SOUTH SUDAN[place]

Documented by User: Humphrey Gunn MD 04/20/25 22:36
Discharge Summary
Discharge Data
Date of Admission: 04/16/25
Date of Discharge: 04/20/25
Discharge Plan
-
Patient Disposition: Home with Home Care
Discharge Diagnosis/Procedures: Acute urinary retention 2/2 bladder outlet obstruction w/ bilateral hydronephrosis
Condition: Good
Diet: As tolerated
Activity: As tolerated
Driving Restrictions: As prior to admission
Bathing Restrictions: None
Activity Restrictions/Additional Instructions:
Wound Care Instructions
L upper buttock: clean with saline or vashe, skin prep periwound, Santyl to slough, alginate and silicone foam. change daily and prn drainage.
Sacrum: clean with saline or vashe, Alginate over blister then sacral silicone foam change q other day and prn drainage.
Heels: skin prep and Foam adhesives change q 3 days and prn soilage
R hip: silicone foam to protect, change q 3 days and prn soilage
Air mattress Recommended with turning schedule, ROHO cushion to wheelchair
Increase protein in diet.
Follow up at [facility]
Referrals:
Ricki Beard MD [Active, Urology]
Referral Note: Please call [facility] to schedule a suprapubic catheter change in [address] Beard.
NONE,* [Family Provider, Internal Medicine]
Prescriptions:
Continued
therapeutic multivitamin Tablet
1 tab PO DAILY
Eliquis 5 mg Tablet
5 mg PO BID
atorvastatin 40 MG tablet
40 mg PO HS
Discharge Orders:
Discharge Patient (As Directed); Ordered 04/20/25
Ordered By: Meir Zamora
Discharge Date and Time
Discharge Date/Time: 04/20/25 16:56
Print Language: S[place]
== END 2025-04-20 16:56 | disposition home health service (06) | DRG 662 ==
LOC: 2 SOUTH 21:00
PROVIDERS: Nurse Practitioner Family; Registered Nurse; Student in an Organized Health Care Education/Training Program; Surgery; ADMITTING PHYSICIAN Family Medicine; EMERGENCY PHYSICIAN Emergency Medicine; OTHER PHYSICIAN Internal Medicine Infectious Disease
PROC: 0T9B00Z Drainage of Bladder with Drainage Device, Open Approach (ICD-10-PCS; 2025-04-16)
PROC: 0TJB8ZZ Inspection of Bladder, Via Natural or Artificial Opening Endoscopic (ICD-10-PCS; 2025-04-16)
DX: N13.6 Pyonephrosis (principal); L89.153 Pressure ulcer of sacral region, stage 3; L89.323 Pressure ulcer of left buttock, stage 3; G82.20 Paraplegia, unspecified; I50.32 Chronic diastolic (congestive) heart failure; L03.329 Acute lymphangitis of trunk, unspecified; Q62.39 Other obstructive defects of renal pelvis and ureter; S37.29XA Other injury of bladder, initial encounter; I25.10 Atherosclerotic heart disease of native coronary artery without angina pectoris; N32.0 Bladder-neck obstruction; N31.9 Neuromuscular dysfunction of bladder, unspecified; E78.5 Hyperlipidemia, unspecified; I25.5 Ischemic cardiomyopathy; N30.81 Other cystitis with hematuria; Y84.6 Urinary catheterization as the cause of abnormal reaction of the patient, or of later complication, without mention of misadventure at the time of the procedure; I25.2 Old myocardial infarction; Z79.899 Other long term (current) drug therapy; Z86.718 Personal history of other venous thrombosis and embolism; Z87.891 Personal history of nicotine dependence; Z95.5 Presence of coronary angioplasty implant and graft; Z98.1 Arthrodesis status
CPT/HCPCS: 51798; 74177; 80048; 80053; 81003; 81015; 83735; 85025; 85027; 87070; 87086; 96374; 97162; 97166; 99285; C1769; J1335; Q9967

== ENCOUNTER 2025-09-12 18:14 | Inpatient (IN) | payer OTHER, SELFPAY ==
[2025-09-12] VITALS (10 sets, daily range): BP systolic 110–131; BP diastolic 58–70; BMI 26.8; BMI 24.9
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
[2025-09-12 12:26] LABS: Urine Character Cloudy (Clear)
[2025-09-12 12:35] LABS: Urine Red Blood Cell 0-2 /HPF (0-2); Urine Squamous Cell 0-2 /LPF (Few)
[2025-09-12 12:36] LABS: Urine White Cell 16-20 /HPF (0-5)
[2025-09-12 12:52] LABS: Hematocrit 39.5 % (39.0-52.0); Hemoglobin 13.1 g/dL (13.0-18.0); Mean Corp Hgb Conc. 33.2 g/dL (33.0-37.0); Mean Corpuscular Volume 79.0 fL (80.0-94.0); Nucleated Red Blood Cells % 0 % (-); Platelet Count 249 10^3/uL (130-400); Red Cell Dist. Width 15.2 % (11.5-14.5)
[2025-09-12 13:06] LABS: ALT (SGPT) 15 U/L (0-50); AST (SGOT) 15 U/L (17-59); Albumin 3.6 g/dl (3.5-5.0); Alkaline Phosphatase 77 U/L (38-126); Blood Urea Nitrogen 9 mg/dl (9-20); Calcium 9.1 mg/dl (8.4-10.2); Carbon Dioxide 28 mmol/L (22-30); Chloride 101 mmol/L (98-107); Estimated Creatinine Clearance > 125 ml/min; Glucose 93 mg/dl (70-99); Potassium 3.3 mmol/L (3.5-5.1); Sodium 136 mmol/L (135-145); Total Protein 7.1 g/dl (6.3-8.2); eGFR > 60.00
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
[2025-09-12] MEDS: MERREM 100 MG IV (20:29)
[2025-09-12] MEDS: ELIQUIS 5 MG PO (20:58)
[2025-09-12] MEDS: LIPITOR 40 MG PO (20:58)
[2025-09-12] MEDS: THERAGRAN 1 TABLET PO (20:58)
[2025-09-12] MEDS: TYLENOL 650 MG PO (23:35)
[2025-09-13] MEDS: MERREM 500 MG IV ×2 (04:31→09:20)
[2025-09-13] MEDS: STERILE WATER FOR INJECTION 10 ML IV ×2 (04:32→09:20)
[2025-09-13 07:05] VITALS: BP 100/64
[2025-09-13 08:13] LABS: Hematocrit 39.2 % (39.0-52.0); Hemoglobin 13.2 g/dL (13.0-18.0); Mean Corp Hgb Conc. 33.7 g/dL (33.0-37.0); Mean Corpuscular Volume 80.8 fL (80.0-94.0); Nucleated Red Blood Cells % 0 % (-); Platelet Count 246 10^3/uL (130-400); Red Cell Dist. Width 15.3 % (11.5-14.5)
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
[2025-09-13 08:56] LABS: ALT (SGPT) 15 U/L (0-50); AST (SGOT) 15 U/L (17-59); Albumin 3.2 g/dl (3.5-5.0); Alkaline Phosphatase 69 U/L (38-126); Blood Urea Nitrogen 10 mg/dl (9-20); Calcium 8.8 mg/dl (8.4-10.2); Carbon Dioxide 27 mmol/L (22-30); Chloride 103 mmol/L (98-107); Estimated Creatinine Clearance > 125 ml/min; Glucose 94 mg/dl (70-99); Potassium 3.5 mmol/L (3.5-5.1); Sodium 136 mmol/L (135-145); Total Protein 6.5 g/dl (6.3-8.2); eGFR > 60.00
[2025-09-13] MEDS: TYLENOL 650 MG PO (09:19)
[2025-09-13] MEDS: ZOFRAN 4 MG IV ×2 (09:20→20:40)
[2025-09-13] MEDS: ELIQUIS 5 MG PO ×2 (09:20→19:46)
--- NOTE | 2025-09-13 11:58 | WOUNDNOTE ---
CLOSER VIEW OF SACRUM
--- NOTE | 2025-09-13 12:00 | WOUNDNOTE ---
HEELS AND L MEDIAL ANKLE
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
[2025-09-13 15:05] VITALS: BP 018/59
[2025-09-13] MEDS: STERILE WATER FOR INJECTION IV (16:14)
[2025-09-13] MEDS: MERREM IV (16:14)
[2025-09-13 16:58] LABS: Reticulocyte Count 1.1 % (0.4-2.8)
--- NOTE | 2025-09-13 17:07 | CM ---
Met with patient bedside. IA completed. Is a paraplegic and independent with ADLs.Hx of [facility] for nursing care.DME: Wheelchair. No hx of SNF, home O2. No insecurities are identified. Confirmed PCP, RX, insurance and drug coverage.
Pt stated he needed a new wheelchair pad. Pt was referred to his insurance company to see if they would cover the cost. If not he could get one from a DME company.
PCP: Yanick Montoya
Rx: [facility]
Wound care following pt
Plan: Home with [facility] for wound care.
[2025-09-13 17:12] LABS: LDH 124 U/L (120-246)
[2025-09-13] MEDS: THERAGRAN 1 TABLET PO (17:38)
[2025-09-13] MEDS: KEFLEX 500 MG PO ×2 (17:39→21:34)
[2025-09-13] MEDS: BACTRIM DS 800 MG/160 MG 1 TABLET PO (19:46)
[2025-09-13] MEDS: LIPITOR 40 MG PO (21:35)
[2025-09-13 23:36] VITALS: BP 118/62
[2025-09-14 06:59] VITALS: BMI 24.7
[2025-09-14 07:05] VITALS: BP 118/67
[2025-09-14 08:01] LABS: Hematocrit 40.8 % (39.0-52.0); Hemoglobin 13.1 g/dL (13.0-18.0); Mean Corp Hgb Conc. 32.1 g/dL (33.0-37.0); Mean Corpuscular Volume 81.8 fL (80.0-94.0); Nucleated Red Blood Cells % 0 % (-); Platelet Count 265 10^3/uL (130-400); Red Cell Dist. Width 15.3 % (11.5-14.5)
[2025-09-14] MEDS: BACTRIM DS 800 MG/160 MG 1 TABLET PO ×2 (08:25→20:08)
[2025-09-14] MEDS: KEFLEX 500 MG PO ×4 (08:25→21:36)
[2025-09-14] MEDS: ELIQUIS 5 MG PO ×2 (08:25→20:08)
[2025-09-14 08:49] LABS: ALT (SGPT) 19 U/L (0-50); AST (SGOT) 17 U/L (17-59); Albumin 3.3 g/dl (3.5-5.0); Alkaline Phosphatase 73 U/L (38-126); Blood Urea Nitrogen 11 mg/dl (9-20); Calcium 9.0 mg/dl (8.4-10.2); Carbon Dioxide 27 mmol/L (22-30); Chloride 101 mmol/L (98-107); Estimated Creatinine Clearance > 125 ml/min; Glucose 93 mg/dl (70-99); Potassium 4.0 mmol/L (3.5-5.1); Sodium 134 mmol/L (135-145); Total Protein 6.6 g/dl (6.3-8.2); eGFR > 60.00
--- NOTE | 2025-09-14 09:54 | W.PN.ID1 ---
Date of Service
Date of Service: September 14, 2025
Today's Communication
- continue bactrim 1 DS tab BID x 10 days 09/13-09/22
- continue keflex 500 mg PO QID x 10 days 09/13-09/22
- would follow clinically another day on the new antibiotic regimen
Assessment / Plan
Scrotal Cellulitis
Bilateral Epididymitis
T12 paraplegia
Leukocytosis - improving
Remote history of colonization with Morganella
- urine culture polymicrobial as expected from chronic suprapubic tube
- blood cultures x2 no growth to date
- continue bactrim 1 DS tab BID x 10 days 09/13-09/22
- continue keflex 500 mg PO QID x 10 days 09/13-09/22
- would follow clinically another day on the new antibiotic regimen
Chief Complaint
-: Cellulitis
Subjective / Review of Systems
afebrile
bp stable
less erythema, still some induration on the inferior aspect
Vital Signs / Physical Exam
Vital Signs
Vital Signs
Temp Pulse Resp BP Pulse Ox
98.7 F 70 16 118/67 99
09/14/25 07:05 09/14/25 07:05 09/14/25 07:05 09/14/25 07:05 09/14/25 07:05
Physical Exam
Constitutional: No Acute Distress
Cardiovascular: Regular Rate and S1/S2; Negative Murmur or Rub
Pulmonary: Clear and Symmetric; Negative Wheezes or Rales
Gastrointestinal: Soft, Non Tender, Non Distended and Normal Bowel Sounds
Genito-Urinary: Other (resolving erythema of the scrotum, dependant induration, no crepitus, no wounds)
Skin: Warm and Dry; Negative Rash or Jaundice
Neurological: Awake
Objective Data
Lab Data
Lab Results
09/14/25 07:34
09/14/25 07:34
Estimated Creat Clear > 125 ml/min 09/14/25 07:34
Total Bilirubin 1.0 mg/dl (0.2-1.3) 09/14/25 07:34
AST 17 U/L (17-59) 09/14/25 07:34
ALT 19 U/L (0-50) 09/14/25 07:34
Alkaline Phosphatase 73 U/L (38-126) 09/14/25 07:34
Most recent labs reviewed.
Micro Results:
09/12/25 23:30 Blood Culture - Preliminary
Blood/Venous No Growth in 24 hours- Final report to follow
09/12/25 16:23 Blood Culture - Preliminary
Blood/Venous No Growth in 24 hours- Final report to follow
09/12/25 12:15 Urine Culture - Final
Urine
--- NOTE | 2025-09-14 10:30 | VNURNOTE ---
Home Health Liaison met with patient at bedside to discuss [facility] nurse/therapy, visits, schedule and homebound status. Patient is agreeable and understands that visits at home will be 2-3 x per week to assess and teach medical and wound care
management. Patient recently had [facility] services last month; is familiar w/services. He is aware that [facility] will contact them for start of care within a few days after discharge from . Provided contact number for [facility].
[facility] referral completed in [facility].
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
[2025-09-14] MEDS: TYLENOL 650 MG PO ×2 (12:26→21:41)
[2025-09-14 15:00] VITALS: BP 105/63
--- NOTE | 2025-09-14 15:35 | CM ---
Reviewed chart and met with pt bedside. On a new ABX regimen. Possible DC tomorrow.
Plan: Home with [facility]
[2025-09-14] MEDS: THERAGRAN 1 TABLET PO (17:09)
[2025-09-14] MEDS: LIPITOR 40 MG PO (21:36)
[2025-09-14 23:15] VITALS: BP 107/51
[2025-09-15 06:22] LABS: Hematocrit 41.6 % (39.0-52.0); Hemoglobin 13.8 g/dL (13.0-18.0); Mean Corp Hgb Conc. 33.2 g/dL (33.0-37.0); Mean Corpuscular Volume 79.7 fL (80.0-94.0); Nucleated Red Blood Cells % 0 % (-); Platelet Count 278 10^3/uL (130-400); Red Cell Dist. Width 15.1 % (11.5-14.5)
[2025-09-15 07:00] LABS: Blood Urea Nitrogen 12 mg/dl (9-20); Calcium 9.3 mg/dl (8.4-10.2); Carbon Dioxide 25 mmol/L (22-30); Chloride 102 mmol/L (98-107); Estimated Creatinine Clearance > 125 ml/min; Glucose 94 mg/dl (70-99); Potassium 4.2 mmol/L (3.5-5.1); Sodium 134 mmol/L (135-145); eGFR > 60.00
[2025-09-15 07:05] VITALS: BP 116/64
--- NOTE | 2025-09-15 08:03 | W.PN.UPDATE ---
Update Note
Progress Note Update
Scrotal cellulitis + bilateral epididymo-orchitis
H/o neurogenic bladder secondary to SCI
s/p SPT for NGB (previously on [facility] long-term)
exam stable w/ slow clinical improvement
Recommendations:
- continue Bactrim 1 DS tab BID x 10 days 09/13-09/22 per ID
- continue Keflex 500 mg PO QID x 10 days 09/13-09/22 per ID
- F/U w/ Dr. Beard in 1 week as scheduled for routine SPT change and SPT change teaching (for pt to perform at home)
[2025-09-15] MEDS: BACTRIM DS 800 MG/160 MG 1 TABLET PO (08:51)
[2025-09-15] MEDS: KEFLEX 500 MG PO (08:52)
[2025-09-15] MEDS: ELIQUIS 5 MG PO ×2 (08:52→20:15)
[2025-09-15] MEDS: ZOFRAN 4 MG IV (09:07)
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
--- NOTE | 2025-09-15 10:49 | W.PN.ID1 ---
Date of Service
Date of Service: September 15, 2025
Today's Communication
- low grade fever and increasing leukocytosis on bactrim/keflex
- restart meropenem, will set up a course of home IV meropenem x10 days
- midline
- script sent to transplant case manager and my office
- follow clinically
Assessment / Plan
Bilateral Epididymitis
Complicated UTI
Scrotal Cellulitis
T12 paraplegia
Leukocytosis - improving
Remote history of colonization with Morganella
- urine culture polymicrobial as expected from chronic suprapubic tube
- repeat ua and urine culture
- blood cultures x2 no growth to date
- history of colonization with quinolone resistant Morganella 2023
- low grade fever and increasing leukocytosis on bactrim/keflex
- restart meropenem, will set up a course of home IV meropenem x10 days
- midline
- script sent to transplant case manager and my office
- follow clinically
Chief Complaint
-: Cellulitis and Other (epididymitis)
Subjective / Review of Systems
Tmax 100.4 overnight
BP stable
no events overnight
increasing leukocytosis
Vital Signs / Physical Exam
Vital Signs
Vital Signs
Temp Pulse Resp BP Pulse Ox
99.2 F 84 16 116/64 98
09/15/25 07:05 09/15/25 07:05 09/15/25 07:05 09/15/25 07:05 09/15/25 07:05
Physical Exam
Constitutional: No Acute Distress
Cardiovascular: Regular Rate and S1/S2; Negative Murmur or Rub
Pulmonary: Clear and Symmetric; Negative Wheezes or Rales
Gastrointestinal: Soft, Non Tender, Non Distended and Normal Bowel Sounds
Genito-Urinary: Other (scrotum remain pain, asensate; no crepitus, progression or wounds)
Skin: Warm and Dry; Negative Rash or Jaundice
Objective Data
Lab Data
Lab Results
09/15/25 05:48
09/15/25 05:48
Estimated Creat Clear > 125 ml/min 09/15/25 05:48
Total Bilirubin 1.0 mg/dl (0.2-1.3) 09/14/25 07:34
AST 17 U/L (17-59) 09/14/25 07:34
ALT 19 U/L (0-50) 09/14/25 07:34
Alkaline Phosphatase 73 U/L (38-126) 09/14/25 07:34
Most recent labs reviewed.
Micro Results:
09/12/25 23:30 Blood Culture - Preliminary
Blood/Venous No Growth in 48 hours- Final report to follow
09/12/25 16:23 Blood Culture - Preliminary
Blood/Venous No Growth in 48 hours- Final report to follow
09/12/25 12:15 Urine Culture - Final
Urine
Care Review
Plan reviewed with: Physician (Dr Blum - fever, change antibiotics)
[2025-09-15] MEDS: MERREM 1000 MG IV ×2 (11:35→20:12)
[2025-09-15] MEDS: STERILE WATER FOR INJECTION 20 ML IV ×2 (11:36→20:12)
--- NOTE | 2025-09-15 11:44 | CM ---
Received Script for IV Antibiotics from Infectious Disease Provider
Spoke with Carolina @ [facility];
Script, Demographics, and Clinicals Faxed to # [phone]
Ale assigned to case
Plan: Discharge to home on Saturday with [facility] and Home Health w/ [facility]
[2025-09-15 14:10] LABS: Urine Character Slightly Cloudy (Clear)
[2025-09-15 14:20] LABS: Urine White Cell 50-60 /HPF (0-5)
[2025-09-15 15:05] VITALS: BP 106/45
[2025-09-15] MEDS: THERAGRAN PO (17:11)
[2025-09-15] MEDS: LIPITOR 40 MG PO (20:15)
[2025-09-15 23:00] VITALS: BP 102/57
[2025-09-16] MEDS: MERREM 1000 MG IV ×3 (04:19→20:58)
[2025-09-16] MEDS: STERILE WATER FOR INJECTION 20 ML IV ×3 (04:19→20:58)
[2025-09-16 07:58] VITALS: BP 95/52
[2025-09-16 08:09] LABS: Hematocrit 40.9 % (39.0-52.0); Hemoglobin 13.7 g/dL (13.0-18.0); Mean Corp Hgb Conc. 33.5 g/dL (33.0-37.0); Mean Corpuscular Volume 79.1 fL (80.0-94.0); Nucleated Red Blood Cells % 0 % (-); Platelet Count 288 10^3/uL (130-400); Red Cell Dist. Width 15.1 % (11.5-14.5)
[2025-09-16] MEDS: ELIQUIS 5 MG PO ×2 (08:20→20:58)
--- NOTE | 2025-09-16 09:20 | W.PN.ID1 ---
Date of Service
Date of Service: September 16, 2025
Today's Communication
Continue meropenem.
Assessment / Plan
Bilateral Epididymitis
Complicated UTI
Scrotal Cellulitis
T12 paraplegia
Leukocytosis
Remote history of colonization with Morganella
- urine culture polymicrobial as expected from chronic suprapubic tube
- repeat ua 50-60 wbc, urine culture >100k mixed hunter
- blood cultures x2 no growth to date
- history of colonization with quinolone resistant Morganella 2023
- low grade fever and increasing leukocytosis on bactrim/keflex
- Continue meropenem x10 days
- midline in place
- Dr. Crawford script sent to case operator and ID office
- Trend WBC
- follow clinically
Chief Complaint
-: Cellulitis and Other (epididymitis)
Subjective / Review of Systems
Feels better. No further fever.
Vital Signs / Physical Exam
Vital Signs
Vital Signs
Temp Pulse Resp BP Pulse Ox
98.7 F 79 18 95/52 96
09/16/25 07:58 09/16/25 07:58 09/16/25 07:58 09/16/25 07:58 09/16/25 07:58
Physical Exam
Constitutional: No Acute Distress
Cardiovascular: Regular Rate and S1/S2
Pulmonary: Clear and Symmetric
Gastrointestinal: Soft, Non Tender, Non Distended and Normal Bowel Sounds
Genito-Urinary: Clear Urine (SPT)
Neurological: AO x 3
Lines: Other (LUE midline - no erythema)
Objective Data
Lab Data
Lab Results
09/16/25 08:01
09/15/25 05:48
Estimated Creat Clear > 125 ml/min 09/15/25 05:48
Total Bilirubin 1.0 mg/dl (0.2-1.3) 09/14/25 07:34
AST 17 U/L (17-59) 09/14/25 07:34
ALT 19 U/L (0-50) 09/14/25 07:34
Alkaline Phosphatase 73 U/L (38-126) 09/14/25 07:34
Most recent labs reviewed.
Micro Results:
09/15/25 13:52 Urine Culture - Final
Urine
09/12/25 23:30 Blood Culture - Preliminary
Blood/Venous No Growth in 72 hours- Final report to follow
09/12/25 16:23 Blood Culture - Preliminary
Blood/Venous No Growth in 72 hours- Final report to follow
09/12/25 12:15 Urine Culture - Final
Urine
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
[2025-09-16 16:09] VITALS: BP 113/59
[2025-09-16] MEDS: THERAGRAN PO (17:43)
[2025-09-16] MEDS: LIPITOR 40 MG PO (20:58)
[2025-09-16 23:00] VITALS: BP 117/73
[2025-09-17 02:07] VITALS: BP 129/75
[2025-09-17] MEDS: MERREM 1000 MG IV ×3 (04:52→19:31)
[2025-09-17] MEDS: STERILE WATER FOR INJECTION 20 ML IV ×3 (04:52→19:31)
[2025-09-17 04:55] LABS: Hematocrit 41.7 % (39.0-52.0); Hemoglobin 13.8 g/dL (13.0-18.0); Mean Corp Hgb Conc. 33.1 g/dL (33.0-37.0); Mean Corpuscular Volume 79.9 fL (80.0-94.0); Nucleated Red Blood Cells % 0 % (-); Platelet Count 304 10^3/uL (130-400); Red Cell Dist. Width 14.7 % (11.5-14.5)
[2025-09-17 07:14] VITALS: BP 109/50
[2025-09-17] MEDS: OMNIPAQUE 50 ML PO (08:52)
--- NOTE | 2025-09-17 10:01 | W.PN.ID1 ---
Date of Service
Date of Service: September 17, 2025
Today's Communication
follow up CT
scrotal erythema has resolved
Assessment / Plan
Bilateral Epididymitis
Complicated UTI
Scrotal Cellulitis
T12 paraplegia
Leukocytosis
Remote history of colonization with Morganella
- urine culture polymicrobial as expected from chronic suprapubic tube
- repeat ua 50-60 wbc, urine culture >100k mixed hunter
- blood cultures x2 no growth to date
- history of colonization with quinolone resistant Morganella 2023
- CT a/p with IV and oral contrast pending
- Continue meropenem x10 days
- midline in place
- script sent to case management coordinator and ID office
- Trend WBC
- follow clinically
Chief Complaint
-: Fever, Cellulitis and Other (epididymitis)
Subjective / Review of Systems
fever last night to 100.6
BP stable
no events overnight
no complaints
Vital Signs / Physical Exam
Vital Signs
Vital Signs
Temp Pulse Resp BP Pulse Ox
99.5 F 81 18 109/50 98
09/17/25 07:14 09/17/25 07:14 09/17/25 07:14 09/17/25 07:14 09/17/25 08:40
Physical Exam
Constitutional: No Acute Distress
Cardiovascular: Regular Rate and S1/S2; Negative Murmur or Rub
Pulmonary: Clear and Symmetric; Negative Wheezes or Rales
Gastrointestinal: Soft, Non Tender, Non Distended and Normal Bowel Sounds
Genito-Urinary: Other (scrotum - erythema has resolved)
Skin: Warm and Dry; Negative Rash or Jaundice
Objective Data
Lab Data
Lab Results
09/17/25 04:41
09/15/25 05:48
Estimated Creat Clear > 125 ml/min 09/15/25 05:48
Total Bilirubin 1.0 mg/dl (0.2-1.3) 09/14/25 07:34
AST 17 U/L (17-59) 09/14/25 07:34
ALT 19 U/L (0-50) 09/14/25 07:34
Alkaline Phosphatase 73 U/L (38-126) 09/14/25 07:34
Most recent labs reviewed.
Micro Results:
09/12/25 23:30 Blood Culture - Preliminary
Blood/Venous No Growth in 4 days- Final report to follow
09/12/25 16:23 Blood Culture - Preliminary
Blood/Venous No Growth in 4 days- Final report to follow
09/15/25 13:52 Urine Culture - Final
Urine
09/12/25 12:15 Urine Culture - Final
Urine
Care Review
Plan reviewed with: Physician (Dr Blum - CT)
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
[2025-09-17] MEDS: FLUSH (NSS) 1 FLUSH IV (12:32)
[2025-09-17] MEDS: ELIQUIS 5 MG PO ×2 (12:32→19:30)
--- NOTE | 2025-09-17 12:53 | W.PN.UPDATE ---
Update Note
Progress Note Update
CTAP w/ IV and PO contrast (urgent) reviewed => no acute pathology noted.
Chronic findings in bilateral collecting systems c/w colonization and h/o neurogenic bladder (s/p SPT insertion in 2024).
exam this AM stable w/ improvement in scrotal cellulitis, mild to moderate soft tissue edema WITHOUT abscess/fluid collection/crepitus.
Defer to ID and Hospitalist for work-up of fever and stable leukocytosis.
F/U as planned in 1 week for SPT change and SPT insertion teaching w/ Dr. Beard (per patient request)
--- NOTE | 2025-09-17 15:14 | CM ---
Pt is now set up with [facility] for a start date of tomorrow. They anticipate providing their first dose around 1-2 PM.
DME (brace/immobilizer place by [employer] cash posting representative and education provided to jose Nieto. REfferal faxed to [facility] care for resumption of care. [employer] has already contacted the and a visit is set up for Saturday.
Pt is discharged to home with Home Health :
[facility]
[2025-09-17 15:44] VITALS: BP 120/63
--- NOTE | 2025-09-17 17:15 | PTCARENOTE ---
Pt AAO x3, moves arm swell. pt paraplegic, has no movement /sensation BLE; stated 'I can't feel anything below T12'. legs flaccid. Pt able to assist with positioning; occ refuses q 2 hr turns. VSS. On room air- pulseox 95%. Abd soft, rounded,
tarun PO. SPT P/I mod amts yellow urine. Foam dsgs intact on heel/sacrum/bilat hips. Resting in bed at present, no c/o. Will continue to mnoitor.
[2025-09-17] MEDS: THERAGRAN PO (17:44)
[2025-09-17] MEDS: LIPITOR 40 MG PO (21:29)
[2025-09-17 23:57] VITALS: BP 96/52
[2025-09-18] MEDS: MERREM 1000 MG IV ×3 (03:19→20:03)
[2025-09-18] MEDS: STERILE WATER FOR INJECTION 20 ML IV ×3 (03:20→20:02)
[2025-09-18 07:12] VITALS: BP 108/41
[2025-09-18 08:12] VITALS: BP 108/41
[2025-09-18] MEDS: ELIQUIS 5 MG PO ×2 (08:59→20:03)
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
[2025-09-18 11:18] LABS: Hematocrit 42.3 % (39.0-52.0); Hemoglobin 13.9 g/dL (13.0-18.0); Mean Corp Hgb Conc. 32.9 g/dL (33.0-37.0); Mean Corpuscular Volume 79.8 fL (80.0-94.0); Nucleated Red Blood Cells % 0 % (-); Platelet Count 317 10^3/uL (130-400); Red Cell Dist. Width 14.7 % (11.5-14.5)
[2025-09-18 15:00] VITALS: BP 116/71
[2025-09-18] MEDS: THERAGRAN PO (17:44)
[2025-09-18] MEDS: LIPITOR 40 MG PO (20:03)
[2025-09-18 23:13] VITALS: BP 124/70
[2025-09-19] MEDS: MERREM 1000 MG IV (03:12)
[2025-09-19] MEDS: STERILE WATER FOR INJECTION 20 ML IV (03:13)
[2025-09-19 07:00] VITALS: BP 104/50
[2025-09-19] MEDS: ELIQUIS 5 MG PO (09:12)
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
--- NOTE | 2025-09-19 09:45 | CM ---
Pt is discharged to home today with [facility] services and [facility]. Pt will receive his next ABX between 1PM-2PM. At that time infusion company will educate the patient on how to administer ABX.
IMM given and placed on chart
[facility]
== END 2025-09-19 11:30 | disposition home health service (06) | DRG 728 ==
LOC: 4 EAST ACU 18:14
PROVIDERS: ADMITTING PHYSICIAN Hospitalist; ATTENDING PHYSICIAN Internal Medicine; EMERGENCY PHYSICIAN Emergency Medicine; FAMILY PHYSICIAN Student in an Organized Health Care Education/Training Program; OTHER PHYSICIAN Student in an Organized Health Care Education/Training Program
DX: N49.2 Inflammatory disorders of scrotum (principal); I50.32 Chronic diastolic (congestive) heart failure; G82.20 Paraplegia, unspecified; K86.2 Cyst of pancreas; Z87.891 Personal history of nicotine dependence; Z79.899 Other long term (current) drug therapy; Z79.01 Long term (current) use of anticoagulants; E78.5 Hyperlipidemia, unspecified; K59.00 Constipation, unspecified; R19.7 Diarrhea, unspecified; I25.5 Ischemic cardiomyopathy; N31.9 Neuromuscular dysfunction of bladder, unspecified
CPT/HCPCS: 74177; 76870; 80048; 80053; 81003; 81015; 82248; 83615; 85025; 85045; 87040; 87086; 93976; 99285; J2185; Q9967